=== PATIENT | male | born 1935 | race Caucasian/White ===

== ENCOUNTER 2016-09-11 15:08 | Inpatient (IN) | payer OTHER ==
[~2016-09-11] VITALS: Ht 172.7 cm; Wt 89.6 kg
[~2016-09-11 15:08] MED LIST: CIPR1TAB11 PO; DONE10TA12 PO; GLC500 PO; GLYB5TAB8 PO; LEVO25TA5 PO; LISI40TA PO; TRAM-10 PO; WARF5TAB7 PO
[2016-09-11] MEDS ORDERED: ONDANSETRON INJ 2 MG/ML 2 ML VIAL IV STA (15:39)
[2016-09-11] MEDS ORDERED: SODIUM CHLORIDE 0.9% 1000ML 2,000 ML IV STA (15:39)
[2016-09-11] MEDS ORDERED: CEFEPIME IV 1,000 MG in DEXTROSE 5% 100ML 100 ML IV STA (15:48)
[2016-09-11 15:49] LABS: BASO % 0.2 %; BASO ABS # 0.03 K/uL (0-0.2); COMPLETE YES; EOS % 0.3 %; HEMATOCRIT 35.5 % (42-52); IG% 0.5 %; LYMPH % 11.1 %; LYMPH ABS # 2.17 K/uL (1.2-3.4); MEAN CELL VOLUME 90.1 fL (80-100); MEAN CORPUSCULAR HGB CONC 34.4 g/dl (32-36); MONO % 12.8 %; NEUT % 75.1 %; PLATELET COUNT 307 K/uL (130-400); RED BLOOD COUNT 3.94 M/uL (4.7-6.1); WHITE BLOOD COUNT 19.52 K/uL (4.8-10.8)
[2016-09-11 15:56] LABS: INR 1.2 (0.9-1.1); PROTHROMBIN TIME (PATIENT) 13.3 SECONDS (9.0-12.0)
[2016-09-11 15:58] LABS: ISTAT HEMOGLOBIN 13.3 g/dl (14.0-18.0); ISTAT IONIZED CALCIUM 1.11 mmol/l (1.12-1.32)
[2016-09-11 16:17] LABS: BUN/CREATININE RATIO 9.9 (10-20); CALCIUM 8.9 mg/dl (8.5-10.1); CREATININE 3.5 mg/dl (0.60-1.40); MAGNESIUM 1.7 mg/dl (1.8-2.4); POTASSIUM 4.6 mmol/L (3.5-5.1)
[2016-09-11 16:22] LABS: CKMB/CK RATIO 1.4 (0-3.0)
--- NOTE | 2016-09-11 16:25 | DIAGNOSTIC IMAGING REPORT ---
LEFT ANKLE MIN 3 VIEWS ROUTINE CLINICAL HISTORY: L ankle pain pain COMPARISON: None. DISCUSSION: Moderate degenerative changes throughout. Operative changes consistent with a partial ankle fusion. Small heel spur mild soft tissue edema. Ankle mortise is aligned anatomically. IMPRESSION: Moderate degenerative as well as postoperative change as described. No acute bony abnormality. Electronically signed by: Trae Herrera M.D. 09/11/2016 4:24 PM Dictated Date/Time: 09/11/2016 4:23 PM
[2016-09-11] MEDS ORDERED: MULT-506 PO (16:41)
[2016-09-11] MEDS ORDERED: SODIUM CHLORIDE 0.9% 500ML 500 ML IV STA ×2 (18:02→19:24)
[2016-09-11 18:32] LABS: MANUAL MICROSCOPIC REQUIRED? YES; URINE APPEARANCE TURBID (CLEAR); URINE COLOR YELLOW; URINE NITRITE NEG (NEG); URINE PH 5.5 (4.5-7.5); URINE SPECIFIC GRAVITY >= 1.030 (1.000-1.030); UROBILINOGEN NEG (NEG)
[2016-09-11 18:36] LABS: REVIEW REQ? NO
[2016-09-11 18:53] LABS: URINE BILIRUBIN NEG (NEG)
[2016-09-11 19:10] LABS: URINE WBC >30 /hpf (0-5)
[2016-09-11 19:11] LABS: URINE BACTERIA 3+ (NEG)
[2016-09-11 19:14] LABS: URINE WAXY CAST 0-3 /lpf (0)
[2016-09-11 19:17] LABS: ZZURINE CULT IF INDIC CATH YES
[2016-09-11] MEDS ORDERED: ZOLPIDEM TARTRATE 5 MG TAB PO PRN (19:45)
[2016-09-11] MEDS ORDERED: MoRPHine SULFATE 4 MG/ML 1 ML CARP\\VIAL IV PRN (19:45)
[2016-09-11] MEDS ORDERED: GLUCAGON FOR INJ 1 MG VIAL SQ PRN (19:45)
[2016-09-11] MEDS ORDERED: DEXTROSE 50% 50 ML SYR IV PRN (19:45)
[2016-09-11] MEDS ORDERED: GLUCOSE 10 TABS/TUBE PO PRN (19:45)
[2016-09-11] MEDS ORDERED: GLUCOSE 40% GEL 15 GM TUBE PO PRN (19:45)
[2016-09-11] MEDS ORDERED: MoRPHine SULFATE 2 MG/ML CARP IV PRN (19:45)
[2016-09-11] MEDS ORDERED: ACETAMINOPHEN 325 MG TAB PO PRN (19:45)
[2016-09-11] MEDS ORDERED: ONDANSETRON INJ 2 MG/ML 2 ML VIAL IV PRN (19:45)
[2016-09-11 21:00] VITALS: BP 122/59; PULSE 102; TEMP 37.2; O2SAT 95; Ht 172.7 cm; Wt 89.6 kg
[2016-09-11] MEDS: INSULIN ASPART 100 UNITS/ML 3 ML PEN SC SCH (21:00)
[2016-09-11] MEDS ORDERED: PIPERACILL/TAZOBAC IV 3.375 GM in DEXTROSE 5% 100ML 100 ML IV STA (21:24)
[2016-09-11] MEDS ORDERED: PIPERACILL/TAZOBAC CONSULT ACTIVE PRN (21:30)
[2016-09-11] MEDS ORDERED: DAPTOMYCIN CONSULT ACTIVE PRN ×2 (21:30)
[2016-09-11] MEDS ORDERED: DAPTOmycin IV 525 MG in SODIUM CHLORIDE 0.9% 50ML 50 ML IV SCH (22:00)
--- NOTE | 2016-09-11 22:00 | EMERGENCY ROOM VISIT NOTE ---
History Report prepared by Bella: Nguyen Peters Under the Supervision of: Dr. Mario Mahmood D.O. First contact with patient: 15:30 Chief Complaint: HYPOTENSION Stated Complaint: FOOT IS BLACK/RED NOT SORE History of Present Illness The patient is a 80 year old male who presents to the Emergency Room with complaints of persistent left foot swelling and erythema that began two days ago. He currently rates his discomfort as a 5/10 in severity. Per the patient' s children, the patient has a history of urosepsis one month ago and was evaluated at [facility]. The patient states that he had a Agarwal catheter placed on 09/04. He states that he became dizzy and fell on Friday. The patient associates diaphoresis, nausea and vomiting with his symptoms today. He states that he vomited three times this morning. The patient states that his last bowel movement was yesterday, noting that it was normal. He denies any history of abdominal surgeries. Pt denies headache, change in vision , fevers, cough, runny nose, chest pain, shortness of breath, diarrhea, and melena. Source of History: patient, family Onset: two days ago Position: foot (left) Symptom Intensity: 5/10 Quality: other (swelling and erythema) Timing: other (persistent) Associated Symptoms: + diaphoresis, + nausea, + vomiting Review of Systems See HPI for pertinent positives & negatives. A total of 10 systems reviewed and were otherwise negative. Past Medical & Surgical Medical Problems: (1) Atrial fibrillation (2) Benign essential hypertension (3) Diabetes mellitus, type 2 (4) Hyperlipidemia (5) Hypotension (6) Pacemaker (7) SIRS (systemic inflammatory response syndrome) Family History FH: cancer FH: lung disease Social History Smoking Status: Never Smoker Smokeless Tobacco Use: No Alcohol Use: none Drug Use: none Marital Status: Occupation Status: retired Current/Historical Medications Scheduled Ciprofloxacin Tab (Cipro), 500 MG PO BID Donepezil Hydrochloride (Aricept), 10 MG PO HS Glyburide (Micronase), 2.5 MG PO QAM Levothyroxine Sodium (Levothyroxine Sodium), 25 MCG PO QAM Lisinopril (Prinivil), 40 MG PO QPM Metformin HCl (Metformin HCl), 1,000 MG PO BID Multivitamin (Multivitamin), 1 TAB PO DAILY Warfarin Sod (Jantoven), 5 MG PO HOLD Scheduled PRN Tramadol (Ultram), 50-100 MG PO Q6H PRN for Pain Allergies Coded Allergies: No Known Allergies (Unverified , 09/11/16) Physical Exam Vital Signs Date Time Temp Pulse Resp B/P Pulse Ox O2 Delivery O2 Flow Rate FiO2 09/11/16 18:20 92 18 100/53 92 Room Air 09/11/16 17:18 94 18 116/57 93 Room Air 09/11/16 16:48 95 18 95/48 97 Room Air 09/11/16 16:23 115/50 09/11/16 16:22 82 16 91/60 92 Room Air 09/11/16 15:57 95 18 86/44 92 Room Air 09/11/16 15:43 91 20 116/50 95 Room Air 09/11/16 15:37 98 09/11/16 15:20 36.5 102 22 75/49 94 Room Air Physical Exam GENERAL: Sitting up in bed, pale, in moderate distress, alert, well appearing, well nourished, non-toxic EYE EXAM: normal conjunctiva. OROPHARYNX: no exudate, no erythema, lips, buccal mucosa, and tongue normal and mucous membranes are moist NECK: supple, no nuchal rigidity, no adenopathy, non-tender CHEST: Pacer located in left chest wall. LUNGS: Clear to auscultation. Normal chest wall mechanics HEART: no murmurs, S1 normal and S2 normal ABDOMEN: abdomen soft, non-tender, normo-active bowel sounds, no masses, no rebound or guarding. BACK: Back is symmetrical on inspection and there is no deformity, no midline tenderness, no CVA tenderness. SKIN: no rashes and no bruising UPPER EXTREMITIES: upper extremities are grossly normal. LOWER EXTREMITIES: Left ankle with erythema and acute tenderness on palpation NEURO EXAM: Normal sensorium, cranial nerves II-XII grossly intact, normal speech, no gross weakness of arms, no gross weakness of legs. No drift. Finger to nose intact. Gross sensation intact. Medical Decision & Procedures ER Provider Diagnostic Interpretation: Xray results per the radiologist and my interpretation. Other results have been interpreted by the radiologist and reviewed by me. LEFT ANKLE MIN 3 VIEWS ROUTINE CLINICAL HISTORY: L ankle pain pain COMPARISON: None. DISCUSSION: Moderate degenerative changes throughout. Operative changes consistent with a partial ankle fusion. Small heel spur mild soft tissue edema. Ankle mortise is aligned anatomically. IMPRESSION: Moderate degenerative as well as postoperative change as described. No acute bony abnormality. Electronically signed by: Trae Herrera M.D. 09/11/2016 4:24 PM Dictated Date/Time: 09/11/2016 4:23 PM Laboratory Results 09/11/16 15:35 Red Blood Count 3.94, Mean Corpuscular Volume 90.1, Mean Corpuscular Hemoglobin 31.0, Mean Corpuscular Hemoglobin Concent 34.4, Mean Platelet Volume 9.0, Neutrophils (%) (Auto) 75.1, Lymphocytes (%) (Auto) 11.1, Monocytes (%) (Auto) 12.8, Eosinophils (%) (Auto) 0.3, Basophils (%) (Auto) 0.2, Neutrophils # (Auto ) 14.68, Lymphocytes # (Auto) 2.17, Monocytes # (Auto) 2.49, Eosinophils # (Auto ) 0.06, Basophils # (Auto) 0.03 09/11/16 15:35 Test 09/11/16 15:35 09/11/16 15:40 09/11/16 15:46 09/11/16 18:15 White Blood Count 19.52 K/uL (4.8-10.8) Red Blood Count 3.94 M/uL (4.7-6.1) Hemoglobin 12.2 g/dL (14.0-18.0) Hematocrit 35.5 % (42-52) Mean Corpuscular Volume 90.1 fL (80-100) Mean Corpuscular Hemoglobin 31.0 pg (25-34) Mean Corpuscular Hemoglobin Concent 34.4 g/dl (32-36) Platelet Count 307 K/uL (130-400) Mean Platelet Volume 9.0 fL (7.4-10.4) Neutrophils (%) (Auto) 75.1 % Lymphocytes (%) (Auto) 11.1 % Monocytes (%) (Auto) 12.8 % Eosinophils (%) (Auto) 0.3 % Basophils (%) (Auto) 0.2 % Neutrophils # (Auto) 14.68 K/uL (1.4-6.5) Lymphocytes # (Auto) 2.17 K/uL (1.2-3.4) Monocytes # (Auto) 2.49 K/uL (0.11-0.59) Eosinophils # (Auto) 0.06 K/uL (0-0.5) Basophils # (Auto) 0.03 K/uL (0-0.2) RDW Standard Deviation 48.7 fL (36.4-46.3) RDW Coefficient of Variation 14.7 % (11.5-14.5) Immature Granulocyte % (Auto) 0.5 % Immature Granulocyte # (Auto) 0.09 K/uL (0.00-0.02) Prothrombin Time 13.3 SECONDS (9.0-12.0) Prothromb Time International Ratio 1.2 (0.9-1.1) Est Creatinine Clear Calc Drug Dose 18.6 ml/min Estimated GFR () 18.3 Estimated GFR (Non- 15.8 BUN/Creatinine Ratio 9.9 (10-20) Uric Acid 5.1 mg/dl (2.6-7.2) Calcium Level 8.9 mg/dl (8.5-10.1) Magnesium Level 1.7 mg/dl (1.8-2.4) Total Bilirubin 0.6 mg/dl (0.2-1) Direct Bilirubin 0.1 mg/dl (0-0.2) Aspartate Amino Transf (AST/SGOT) 15 U/L (15-37) Alanine Aminotransferase (ALT/SGPT) 23 U/L (12-78) Alkaline Phosphatase 85 U/L (45-117) Total Creatine Kinase 71 U/L (39-308) Creatine Kinase MB 1.0 ng/ml (0.5-3.6) Creatine Kinase MB Ratio 1.4 (0-3.0) Troponin I 0.035 ng/ml (0-0.045) Total Protein 9.0 gm/dl (6.4-8.2) Albumin 3.2 gm/dl (3.4-5.0) Bedside Lactic Acid Venous 3.94 mmol/L (0.90-1.70) Bedside Hemoglobin 13.3 g/dl (14.0-18.0) Bedside Hematocrit 39 % (42-52) Bedside Sodium 136 mEq/L (135-144) Bedside Potassium 4.6 mEq/L (3.3-5.0) Bedside Chloride 100 mEq/L (101-112) Bedside Total CO2 22 mEq/l (24-31) Anion Gap 20.0 mmol/L (16-25) Bedside Blood Urea Nitrogen 33 mg/dl (7-18) Bedside Creatinine 3.0 mg/dl (0.6-1.3) Bedside Glucose (other) 146 mg/dl (70-99) Bedside Ionized Calcium (Kirstin) 1.11 mmol/l (1.12-1.32) Urine Color YELLOW Urine Appearance TURBID (CLEAR) Urine pH 5.5 (4.5-7.5) Urine Specific [place] >= 1.030 (1.000-1.030) Urine Protein 3+ (NEG) Urine Glucose (UA) TRACE (NEG) Urine Ketones TRACE (NEG) Urine Occult Blood 3+ (NEG) Urine Nitrite NEG (NEG) Urine Bilirubin NEG (NEG) Urine Urobilinogen NEG (NEG) Urine Leukocyte Esterase MODERATE (NEG) Urine RBC 10-30 /hpf (0-4) Urine WBC >30 /hpf (0-5) Urine Epithelial Cells 0-5 /lpf (0-5) Urine Other Crystals TALC (NONE PRSENT) Urine Bacteria 3+ (NEG) Urine Hyaline Casts 5-10 /lpf (0-5) Urine Granular Casts 1-5 /lpf (0) Urine Waxy Casts 0-3 /lpf (0) Test 09/11/16 19:22 Laboratory results per my review. Medications Administered Medications (Trade) Dose Ordered Sig/Bertha Route Start Time Stop Time Status Last Admin Dose Admin Sodium Chloride (Nss 1000ml) 2,000 ml @ 999 mls/hr Q2H1M STAT IV 09/11/16 15:39 09/11/16 17:39 DC 09/11/16 15:46 999 MLS/HR Ondansetron HCl 4 mg 4 mg NOW STAT IV 09/11/16 15:39 09/11/16 15:40 DC 09/11/16 15:44 4 MG Cefepime HCl 1000 mg/Dextrose 111.3 ml @ 200 mls/hr NOW STAT IV 09/11/16 15:48 09/11/16 16:21 DC 09/11/16 16:21 200 MLS/HR Sodium Chloride 500 ml @ 999 mls/hr Q31M STAT IV 09/11/16 18:02 09/11/16 18:32 DC 09/11/16 18:02 999 MLS/HR Sodium Chloride (Nss 500ml) 500 ml @ 999 mls/hr Q31M STAT IV 09/11/16 19:24 09/11/16 19:54 DC 09/11/16 19:30 999 MLS/HR ECG Indication: other (sepsis) Rate (beats per minute): 92 Rhythm: other (ventricularly paced) Findings: LBBB, other (normal axis) ED Course ED COURSE: Vital signs were reviewed and showed hypotensive, tachycardic The patients medical record was reviewed The above diagnostic studies were performed and reviewed. ED treatments and interventions as stated above. 1531: The patient was evaluated in room C2B. A complete history and physical examination was performed. 1539: Ordered Zofran Inj 4 mg IV, Sodium Chloride 2000 ml @ 999 mls/hr IV. 1548: Ordered Cefepime HCl 1000 mg/Dextrose 111.3 ml @ 200 mls/hr IV. 1624: Upon reevaluation, the patient is his pressure is 115. I discussed my findings with the patient and he understands and agrees with the treatment plan. Based on the patients age, coexisting illnesses, exam and lab findings the decision to treat as an inpatient was made. The patient remained stable while under my care. The patient will be evaluated for further management. 1716: I discussed the patients case with MARIBETH Galindo. She is going to evaluate the patient for further treatment. Medical Decision Differential diagnosis includes etiologies such as sepsis, UTI, pneumonia, metabolic, electrolyte abnormalities, cardiac sources, intracerebral event, toxicologic, neurologic, as well as others were entertained. Patient is a 80-year-old male who presents the ER for hypertension and weakness. Upon presentation his systolic pressures were 70. He has an indwelling Agarwal for BPH. Labs were remarkable for a leukocytosis of 20,000. Creatinine of 3.5 with no old and a lactic acid of 4. Patient was given three liters of normal saline IV. His systolic pressures gradually improved from the 70s to 80s to 90s and low 100s. UA appears to be infected. Chest x-ray performed as an outpatient was unremarkable. Patient was monitored closely in the ER for over 4 hours. He was given IV antibiotics which included cefepime for broad spectrum coverage. He was admitted to internal medicine with sepsis secondary to UTI and gout versus a strain ankle versus overlying cellulitis. I do favor that left ankle is likely related to trauma as the daughter notes he admitted to following 2 days ago when the ankle pain started. X-ray show no acute fractures. Consults Time Called: 1700 Consulting Physician: MARIBETH Galindo Returned Call: 1716 I discussed the patients case with MARIBETH Galindo. She is going to evaluate the patient for further treatment. Impression Primary Impression: Sepsis Additional Impressions: Hypotension Leukocytosis Critical Care I have personally spent 75 minutes of critical care time in the direct management of this patient. This includes bedside care, interpretation of diagnostic studies, and testing, discussion with consultants, patient, and family members, and other required patient management activities. This 75 minutes is in excess of all separately billable procedures. Scribe Attestation The scribe's documentation has been prepared under my direction and personally reviewed by me in its entirety. I confirm that the note above accurately reflects all work, treatment, procedures, and medical decision making performed by me. Departure Information Dispostion Being Evaluated By Hospitalist Referrals No Doctor, Assigned (PCP) Problem Qualifiers Primary Impression: Sepsis Sepsis type: sepsis due to unspecified organism Qualified Codes: A41.9 - Sepsis, unspecified organism Additional Impressions: Hypotension Hypotension type: other hypotension type Qualified Codes: I95.89 - Other hypotension Leukocytosis Leukocytosis type: bandemia Qualified Codes: D72.825 - Bandemia
[2016-09-11] MEDS: COLCHICINE 0.6 MG TAB PO SCH (22:21)
[2016-09-11] MEDS: SODIUM CHLORIDE 0.9% 1000ML 1,000 ML IV SCH (22:22)
--- NOTE | 2016-09-11 22:25 | History and Physical ---
History & Physical Date & Time of Service: Sep 11, 2016 at 22:25 Chief Complaint: Hypotension, Sirs Primary Care Physician: Christoph Barger M.D. History of Present Illness Source: patient, family The patient is a 80-year-old male who presents emergency department with severe left foot pain, redness and swelling, and sweats with nausea and vomiting that began 2 days prior to arrival. He was recently admitted at [facility] for urosepsis 1 month ago. He'll Agarwal catheter placed on September 04. He reports he vomited 3 times this morning. His foot hurts the point that he can' t stand on it. He does have a history of spider bites, having had a bite on his right shoulder last year by treatment, and a nurse noted in the ED tonight that he has spider on him at that time. He denies any recent trauma, recent travel or sick exposures Past Medical/Surgical History Medical Problems: (1) Atrial fibrillation Status: Chronic (2) Benign essential hypertension Status: Chronic (3) Diabetes mellitus, type 2 Status: Chronic (4) Hyperlipidemia Status: Chronic (5) Pacemaker Status: Chronic Family History FH: cancer FH: lung disease Social History Smoking Status: Never Smoker Smokeless Tobacco Use: No Alcohol Use: none Drug Use: none Marital Status: Occupational Status: retired Allergies Coded Allergies: No Known Allergies (Unverified , 09/11/16) Home Medications Scheduled Ciprofloxacin Tab (Cipro), 500 MG PO BID Donepezil Hydrochloride (Aricept), 10 MG PO HS Glyburide (Micronase), 2.5 MG PO QAM Levothyroxine Sodium (Levothyroxine Sodium), 25 MCG PO QAM Lisinopril (Prinivil), 40 MG PO QPM Metformin HCl (Metformin HCl), 1,000 MG PO BID Multivitamin (Multivitamin), 1 TAB PO DAILY Warfarin Sod (Jantoven), 5 MG PO HOLD Scheduled PRN Tramadol (Ultram), 50-100 MG PO Q6H PRN for Pain Review of Systems The patient denies chest pain, palpitations, shortness of breath, cough, vision change, hearing change, sore throat, fevers, chills, sweats, weight change, pelvic pain, blood in urine or stool, dysuria, urinary frequency or urgency, headache, memory loss, abnormal bruising or bleeding, imbalance, focal weakness, numbness or tingling in arms, night sweats, or allergy symptoms. The review of systems is otherwise negative other than for that already noted above, and at least 10 systems have been reviewed. Physical Exam Vital Signs Date Time Temp Pulse Resp B/P Pulse Ox O2 Delivery O2 Flow Rate FiO2 09/11/16 21:00 37.2 102 22 122/59 95 Room Air 09/11/16 18:20 92 18 100/53 92 Room Air 09/11/16 17:18 94 18 116/57 93 Room Air 09/11/16 16:48 95 18 95/48 97 Room Air 09/11/16 16:23 115/50 09/11/16 16:22 82 16 91/60 92 Room Air 09/11/16 15:57 95 18 86/44 92 Room Air 09/11/16 15:43 91 20 116/50 95 Room Air 09/11/16 15:37 98 09/11/16 15:20 36.5 102 22 75/49 94 Room Air The patient is awake, well-developed and adequately nourished, alert and oriented 3, normocephalic and atraumatic, lying in bed and in no acute distress. HEENT--PERRL, EOMI, mucous membranes and oropharynx dry. Neck--supple, no JVD or bruits, thyroid normal, trachea midline, no adenopathy. Heart--normal S1 and S2, no extra beats, no murmurs, rubs or gallops. Lungs--clear bilaterally with good air movement, no respiratory distress, no accessory muscle use. Abdomen--normal bowel sounds and soft, nontender and nondistended, no hernias or masses, no organomegaly. Extremities--left lower extremity no cyanosis, clubbing or edema, with good distal pulse. Right lower extremity with 2+ pitting edema pedally and 1+ pretibial, with erythema and warmth most prominent over her lateral malleolus extending across the dorsum of with the base the ankle and to a lesser extent involving medial malleolus area. There are no suggestions of bites in this area. Dermatologic--normal except as noted above. Neurologic--cranial nerves II through XII grossly intact, motor and sensory examination normal. Rheumatologic--decreased range of motion with pain to light touch involving right ankle. Psychiatric--normal affect. Diagnostics Laboratory Results Results Past 24 Hours Test 09/11/16 15:35 09/11/16 15:40 09/11/16 15:46 09/11/16 18:15 Range/Units White Blood Count 19.52 4.8-10.8 K/uL Red Blood Count 3.94 4.7-6.1 M/uL Hemoglobin 12.2 14.0-18.0 g/dL Hematocrit 35.5 42-52 % Mean Corpuscular Volume 90.1 80-100 fL Mean Corpuscular Hemoglobin 31.0 25-34 pg Mean Corpuscular Hemoglobin Concent 34.4 32-36 g/dl Platelet Count 307 130-400 K/uL Mean Platelet Volume 9.0 7.4-10.4 fL Neutrophils (%) (Auto) 75.1 % Lymphocytes (%) (Auto) 11.1 % Monocytes (%) (Auto) 12.8 % Eosinophils (%) (Auto) 0.3 % Basophils (%) (Auto) 0.2 % Neutrophils # (Auto) 14.68 1.4-6.5 K/uL Lymphocytes # (Auto) 2.17 1.2-3.4 K/uL Monocytes # (Auto) 2.49 0.11-0.59 K/uL Eosinophils # (Auto) 0.06 0-0.5 K/uL Basophils # (Auto) 0.03 0-0.2 K/uL RDW Standard Deviation 48.7 36.4-46.3 fL RDW Coefficient of Variation 14.7 11.5-14.5 % Immature Granulocyte % (Auto) 0.5 % Immature Granulocyte # (Auto) 0.09 0.00-0.02 K/uL Prothrombin Time 13.3 9.0-12.0 SECONDS Prothromb Time International Ratio 1.2 0.9-1.1 Sodium Level 135 136-145 mmol/L Potassium Level 4.6 3.5-5.1 mmol/L Chloride Level 101 98-107 mmol/L Carbon Dioxide Level 25 21-32 mmol/L Anion Gap 9.0 20.0 16-25 mmol/L Blood Urea Nitrogen 35 7-18 mg/dl Creatinine 3.50 0.60-1.40 mg/dl Est Creatinine Clear Calc Drug Dose 18.6 ml/min Estimated GFR () 18.3 Estimated GFR (Non- 15.8 BUN/Creatinine Ratio 9.9 10-20 Random Glucose 139 70-99 mg/dl Uric Acid 5.1 2.6-7.2 mg/dl Calcium Level 8.9 8.5-10.1 mg/dl Magnesium Level 1.7 1.8-2.4 mg/dl Total Bilirubin 0.6 0.2-1 mg/dl Direct Bilirubin 0.1 0-0.2 mg/dl Aspartate Amino Transf (AST/SGOT) 15 15-37 U/L Alanine Aminotransferase (ALT/SGPT) 23 12-78 U/L Alkaline Phosphatase 85 45-117 U/L Total Creatine Kinase 71 39-308 U/L Creatine Kinase MB 1.0 0.5-3.6 ng/ml Creatine Kinase MB Ratio 1.4 0-3.0 Troponin I 0.035 0-0.045 ng/ml Total Protein 9.0 6.4-8.2 gm/dl Albumin 3.2 3.4-5.0 gm/dl Bedside Lactic Acid Venous 3.94 0.90-1.70 mmol/L Bedside Hemoglobin 13.3 14.0-18.0 g/dl Bedside Hematocrit 39 42-52 % Bedside Sodium 136 135-144 mEq/L Bedside Potassium 4.6 3.3-5.0 mEq/L Bedside Chloride 100 101-112 mEq/L Bedside Total CO2 22 24-31 mEq/l Bedside Blood Urea Nitrogen 33 7-18 mg/dl Bedside Creatinine 3.0 0.6-1.3 mg/dl Bedside Glucose (other) 146 70-99 mg/dl Bedside Ionized Calcium (Kirstin) 1.11 1.12-1.32 mmol/l Urine Color YELLOW Urine Appearance TURBID CLEAR Urine pH 5.5 4.5-7.5 Urine Specific [place] >= 1.030 1.000-1.030 Urine Protein 3+ NEG Urine Glucose (UA) TRACE NEG Urine Ketones TRACE NEG Urine Occult Blood 3+ NEG Urine Nitrite NEG NEG Urine Bilirubin NEG NEG Urine Urobilinogen NEG NEG Urine Leukocyte Esterase MODERATE NEG Urine RBC 10-30 0-4 /hpf Urine WBC >30 0-5 /hpf Urine Epithelial Cells 0-5 0-5 /lpf Urine Other Crystals TALC NONE PRSENT Urine Bacteria 3+ NEG Urine Hyaline Casts 5-10 0-5 /lpf Urine Granular Casts 1-5 0 /lpf Urine Waxy Casts 0-3 0 /lpf Test 09/11/16 19:22 Range/Units Lactic Acid Level 2.5 0.4-2.0 mmol/L Microbiology Results 09/11/16 Blood Culture, Received Pending 09/11/16 Blood Culture, Received Pending 09/11/16 Urine Culture, Received Pending Diagnostic Radiology Patient Name: MIKE GONG Ag Unit Number: [id number] Dictated: 09/11/161622 Transcribed: 09/11/161622 MS Printed Date/Time: [~ rep prt dt]/[~ rep prt tm] [~ rep ct labl] - [~ rep ct ivnm] [facility] [place] [address] Dictated: 09/11/161622 Transcribed: 09/11/161622 MS Printed Date/Time: [~ rep prt dt]/[~ rep prt tm] [~ rep ct labl] - [~ rep ct ivnm] DIAGNOSTIC IMAGING [~ rep ct add3]] LEFT ANKLE MIN 3 VIEWS ROUTINE CLINICAL HISTORY: L ankle pain pain COMPARISON: None. DISCUSSION: Moderate degenerative changes throughout. Operative changes consistent with a partial ankle fusion. Small heel spur mild soft tissue edema. Ankle mortise is aligned anatomically. IMPRESSION: Moderate degenerative as well as postoperative change as described. No acute bony abnormality. Electronically signed by: Trae Herrera M.D. 09/11/2016 4:24 PM Dictated Date/Time: 09/11/2016 4:23 PM The status of this report is Signed. Draft = Not yet reviewed or approved by Radiologist. Signed = Reviewed and approved by Radiologist. <AttendingPhy></AttendingPhy> <FamilyPhy>Christoph Barger M.D.</FamilyPhy> < PrimaryPhy>Christoph Barger M.D.</PrimaryPhy> <UnitNumber>[id number]</UnitNumber> <VisitNumber>[id number]</VisitNumber> <PatientName>MIKE GONG</ PatientName> <DateOfBirth>1935</DateOfBirth> <Location>[facility]</Location> < ServiceDate>09/11/16</ServiceDate> <MNE>ESINDI</MNE> <OrderingPhy>Mario Mahmood DO</OrderingPhy> <OrderingPhyMNE>f rep ord dr baldwin</OrderingPhyMNE> < DictatingPhyMNE>f rep dict dr baldwin</DictatingPhyMNE> <CCListMNE>f rep ct helene</ CCListMNE> <AdmittingPhyMNE>f pt admit dr baldwin</AdmittingPhyMNE> <AttendingPhyMNE >f pt attend dr baldwin</AttendingPhyMNE> <ConsultingPhyMNE>f pt consult dr baldwin</ConsultingPhyMNE> <FamilyPhyMNE>f pt fam dr baldwin</FamilyPhyMNE> <OtherPhyMNE>f pt other dr baldwin</OtherPhyMNE> < PrimaryPhyMNE>f pt prim care dr baldwin</PrimaryPhyMNE> <ReferringPhyMNE>f pt referring dr baldwin</ReferringPhyMNE> EKG EKG shows atrial sensed ventricular paced rhythm at 92 bpm, with no acute ST-T changes. Impression Assessment and Plan Right lower extremity cellulitis/possible gout/UTI/SIRS--the patient will be placed on daptomycin IV, Zosyn 3.375 mg IV every 12 hours, and colchicine 0.6 mg by mouth twice a day. We'll add a uric acid level to ED labs. At this time there does not appear to be a spider bite. Atrial fibrillation/hypotension--patient's blood pressure upon arrival in the ED was 75/49. He has responded to IV fluid resuscitation. He will be admitted to the telemetry unit for close vital sign monitoring. We'll continue IV fluids. We will hold lisinopril 40 mg by mouth every afternoon. The patient had been on warfarin 5 mg by mouth daily, but is presently on hold. Diabetes mellitus--hold metformin 1000 mg by mouth twice a day. Of note, his creatinine was 3.50 point admission, and the metformin should not be resumed until INR is less than or equal to 1.4. We'll continue glyburide 2.5 mg by mouth every morning. Place on Accu-Cheks before meals and at bedtime with NovoLog coverage. Hypothyroidism--continue levothyroxine sodium at 25 g by mouth every morning. Dementia--continue donepezil 10 mg by mouth at bedtime. Pain management--continue tramadol at 50 mg by mouth every 4 hours when necessary. Level of Care Telemetry Advanced Directives Existing Advance Directive: No Existing Living Will: No Existing Power of Communication Center Operator: No Resuscitation Status FULL RESUSCITATION VTE Prophylaxis VTE Risk Assessment Done? Y/N: Yes Risk Level: Moderate Given or contraindicated: SCD's Social Service Consult None Apply
[2016-09-11] MEDS: TRAMADOL HCL 50 MG TAB PO PRN (23:53)
[2016-09-12] VITALS (9 sets, daily range): BP systolic 96–123; BP diastolic 43–69; PULSE 74–88; TEMP 36.6–37.5; O2SAT 94–98
[2016-09-12] MEDS ORDERED: PIPERACILL/TAZOBAC IV 3.375 GM in DEXTROSE 5% 100ML 100 ML IV SCH (04:00)
[2016-09-12] MEDS: SODIUM CHLORIDE 0.9% 1000ML 1,000 ML IV SCH ×2 (05:30→17:12)
[2016-09-12] MEDS: LEVOTHYROXINE 25 MCG TAB PO SCH (05:44)
[2016-09-12 07:12] LABS: INR 1.3 (0.9-1.1); PARTIAL THROMBOPLASTIN RATIO 1.3; PROTHROMBIN TIME (PATIENT) 13.7 SECONDS (9.0-12.0)
[2016-09-12 07:27] LABS: BUN/CREATININE RATIO 15.4 (10-20); CALCIUM 7.8 mg/dl (8.5-10.1); CREATININE 2.5 mg/dl (0.60-1.40); MAGNESIUM 1.7 mg/dl (1.8-2.4); POTASSIUM 4.1 mmol/L (3.5-5.1)
[2016-09-12] MEDS: INSULIN ASPART 100 UNITS/ML 3 ML PEN SC SCH ×4 (07:51→21:00)
[2016-09-12] MEDS: MULTIVITAMIN TAB PO SCH (07:53)
[2016-09-12] MEDS: COLCHICINE 0.6 MG TAB PO SCH ×2 (07:53→21:31)
--- NOTE | 2016-09-12 08:09 | Clinical Documentation Query ---
ADEN Bahena : CLINICAL DOCUMENTATION QUERY Patient is a 80 year old male admitted for the evaluation and treatment of right lower extremity cellulitis. H&P documentation includes "SIRS". Unfortunately, in ICD-10, SIRS due to infection does not equate with sepsis as it did in ICD-9. He was bolused 3 liters in the ED. On admission, WBC was 19.52, lactic acid was 3.94, he was tachycardic (102) and hypotensive (75/49). He is being treated with IV Daptomycin and IV Zosyn in addition to IVF and is being monitored on telemetry In your clinical opinion is this patient being managed for: ( ) Sepsis secondary to right lower extremity cellulitis and/or UTI (x ) Other explanation of clinical findings (Please Explain) - did not have sepsis; was volume depleted (severely) due to a passed kidney stone; it was uncertain if he ever had any urinary infection with this episode ( ) Unable to determine (Please Define) ( ) Need to Discuss ( ) Not Agree The medical record reflects the following clinical findings, treatment, and risk factors. Clinical Indicators: As above Treatment: He is being treated with IV Daptomycin and IV Zosyn in addition to IVF. and is being monitored on telemetry Risk Factors: Cellulitis, possible UTI Please clarify and document your clinical opinion in the progress notes and discharge summary. Terms such as "probable", "suspected", "likely", "questionable", "possible", or "still to be ruled out" are acceptable. IF IN AGREEMENT, YOU MUST DOCUMENT ABOVE DIAGNOSTIC STATEMENT IN DAILY PROGRESS NOTES AND DISCHARGE SUMMARY. This document is not part of the patient's record. Thank You, Kee South, RN [phone]
[2016-09-12 13:23] LABS: BASO % 0.2 %; BASO ABS # 0.02 K/uL (0-0.2); COMPLETE YES; EOS % 1.9 %; HEMATOCRIT 27.9 % (42-52); IG% 0.3 %; LYMPH % 16.2 %; LYMPH ABS # 2.03 K/uL (1.2-3.4); MEAN CELL VOLUME 90.9 fL (80-100); MEAN CORPUSCULAR HEMOGLOBIN 29.6 pg (25-34); MEAN CORPUSCULAR HGB CONC 32.6 g/dl (32-36); MEAN PLATELET VOLUME 9.1 fL (7.4-10.4); MONO % 14.2 %; NEUT % 67.2 %; PLATELET COUNT 223 K/uL (130-400); RED BLOOD COUNT 3.07 M/uL (4.7-6.1); WHITE BLOOD COUNT 12.53 K/uL (4.8-10.8)
[2016-09-12] MEDS: PIPERACILL/TAZOBAC IV 3.375 GM in DEXTROSE 5% 100ML 100 ML IV SCH ×2 (13:48→20:03)
[2016-09-12] MEDS: MAGNESIUM OXIDE 400 MG TAB PO SCH (13:49)
--- NOTE | 2016-09-12 13:59 | DIAGNOSTIC IMAGING REPORT ---
CT SCAN OF THE ABDOMEN AND PELVIS WITHOUT IV CONTRAST CLINICAL HISTORY: Left-sided abdominal pain. Sepsis. COMPARISON STUDY: Abdominal CT dated 08/09/2016. TECHNIQUE: CT scan of the abdomen and pelvis is performed from the lung bases to the proximal femora. Images are reviewed in the axial, sagittal, and coronal planes. IV contrast was not administered for this examination as per the referring clinician. Note that the examination was performed in significantly suboptimal fashion without oral and IV contrast.. Automated dose control exposure was utilized. CT DOSE: 1571.90 mGy.cm FINDINGS: Lung bases: The heart is top normal in size and there is a small pericardial effusion. Pacemaker leads are identified. The coronary arteries are densely calcified. There are small pleural effusions with dependent atelectasis. No airspace consolidation is seen typical for pneumonia. There is a small hiatal hernia. Liver: The unenhanced liver is normal in size, contour, and attenuation. There is no intrahepatic biliary ductal dilatation. Gallbladder: Contracted. Spleen: Normal in size and attenuation. Pancreas: The unenhanced pancreas is moderately atrophic and grossly unremarkable. Adrenal glands: Unremarkable. Kidneys: The unenhanced kidneys symmetric cortical atrophy and are without hydronephrosis. There is mild fullness of the left renal collecting system. There is a 5 mm calculus in the distal right ureter seen on image #350. This is similar appearance to the 08/09/2016 examination. There is no upstream dilatation of the right ureter. There are 2 additional nonobstructing right renal calculi measuring up to 11 mm. No left renal calculi are identified. There is no evidence of contour deforming renal mass lesion. Abdominal vasculature: The abdominal aorta is normal in course and caliber noting moderate to advanced atherosclerotic calcification. Bowel: The small bowel and colon are normal in course and caliber. There is moderate colonic diverticulosis without CT evidence of acute diverticulitis. Moderate colonic fecal retention is observed. The appendix is well-visualized and normal. Peritoneum: There is no intraperitoneal free air or abdominal ascites. There is a large fat-containing umbilical hernia. Lymphadenopathy: None. Pelvic viscera: The bladder is partially decompressed around a Agarwal catheter. Foci of intraluminal gas are likely related to instrumentation. A 3 mm bladder calculus is seen on image #360. Bladder wall thickening is nonspecific and may be related to chronic bladder outlet obstruction. The prostate gland is mildly enlarged. There are small bilateral fat-containing inguinal hernias. There is nonspecific soft tissue edema identified involving the scrotum and the penile shaft. There are foci of subcutaneous gas seen in the penis, and small foci of gas are identified within the penile corpora. Skeletal structures: The skeletal structures are osteopenic. There is moderate lumbosacral spondylosis. No lytic or blastic lesions are seen. IMPRESSION: 1. There is a 3 mm calculus identified within the bladder lumen and mild fullness of the left renal collecting system. No hydronephrosis is seen. No left renal calculi are identified, and the 3 mm nonobstructing left lower pole calculus seen on 08/09/2016 is no longer present. These findings are consistent with a recently passed left-sided kidney stone. 2. A 5 mm calculus in the distal right ureter is unchanged from 08/09/2016. There is no upstream hydroureteronephrosis. Urologic follow-up is recommended. 3. Additional nonobstructing right renal calculi as above. 4. There is marked soft tissue edema identified involving the penile shaft and scrotum. There are foci of subcutaneous gas within the penis, as well as small foci of gas within the penile corpora. This is of indeterminate etiology and significance, and could be on a posttraumatic or possibly an infectious basis. Urologic assessment is recommended. 5. The bladder is partially decompressed around a Agarwal catheter. Foci of intraluminal gas are likely related to instrumentation. Clinical correlation will be required. 6. Small pleural effusions. 7. Moderate colonic diverticulosis without CT evidence of acute diverticulitis. 8. Additional findings as above. Electronically signed by: Beni Welch M.D. 09/12/2016 1:58 PM Dictated Date/Time: 09/12/2016 1:45 PM
--- NOTE | 2016-09-12 14:34 | CONSULTATION REPORT ---
DATE OF CONSULTATION: 09/12/2016 HISTORY OF PRESENT ILLNESS: Mr. Paul is a 80-year-old gentleman admitted to the hospital last evening with complaints of severe left ankle/foot pain and swelling. Per his H\T\P, he had been admitted at [facility] approximately a month ago for urosepsis. He was unable to bear weight on his left lower extremity and presented to the ER for evaluation. He was admitted to the hospital for workup and orthopedics consult was asked for. Currently, the patient is sitting at bedside in his chair getting ready to eat lunch. He does not appear in significant acute distress. He states he has a history of an old ankle or foot fusion many years ago. He states he gets intermittent episodes of pain and disability which typically has resolved with cyclobenzaprine. He denies a history of gout. He denies a history of recent trauma. 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 He states his ankle today looks about like it normally does. He did not have any significant erythema or swelling. He can gently toggle his ankle in plantarflexion/dorsiflexion without significant increase in pain. To palpate, the ankle is fairly tender along the medial aspect. He has minimal tenderness anteriorly, posteriorly, or laterally. He denies any tenderness in the mid foot or forefoot. He denies any tenderness proximally up the lower leg towards the knee. X-RAYS: His ankle X-rays were reviewed. The ankle joint is reasonably well aligned with some mild degenerative changes. He has had a previous hindfoot fusion and there are [address] He has some mild mid foot arthritis as well. LABORATORY DATA: His white count upon admission was 19. Uric acid is pending. He did not have a sed rate or CRP. MEDICATIONS: He is currently on IV Zosyn and daptomycin. ASSESSMENT AND PLAN: A 80-year-old gentleman with an acutely inflamed left ankle, unlikely septic in origin. He states it already feels better just since admission. We will continue his current treatment regimen. This will be discussed with Dr. Worley who is the physician satellite instruction facilitator today and we will follow up with the patient daily as needed basis.
--- NOTE | 2016-09-12 16:25 | Urology Consultation ---
History General Date of Service: Sep 12, 2016. Chief Complaint: right ureteral stone Primary Care Physician: Christoph Barger M.D. Pt seen a urologist before?: Yes (Dr. Ambrocio) History of Present Illness 80 yo male presents to [facility] with c/o back and foot pain. consulted for distal right ureteral stone seen on CT and urinary retention. This pt is a pt of Dr. Ambrocio's. Most recently seen by him last week. Noted to have UR since July with indwelling ubrt catheter. He was admitted to [facility] around that time for urosepsis. Pt noted to have a distal right ureteral stone on CT, and is scheduled for cysto with clot evacuation and possible right URS on 09-[address] Ambrocio. Burt catheter in place this afternoon draining clear, yellow urine. Pt also reports scrotal and penile swelling and pain since he was last seen by . Subq gas in penis and penile corpora noted on CT. Imaging Imaging: CT Laboratory Last 24 Hours Test 09/11/16 15:35 09/11/16 15:40 09/11/16 15:46 09/11/16 18:15 White Blood Count 19.52 K/uL Red Blood Count 3.94 M/uL Hemoglobin 12.2 g/dL Hematocrit 35.5 % Mean Corpuscular Volume 90.1 fL Mean Corpuscular Hemoglobin 31.0 pg Mean Corpuscular Hemoglobin Concent 34.4 g/dl Platelet Count 307 K/uL Mean Platelet Volume 9.0 fL Neutrophils (%) (Auto) 75.1 % Lymphocytes (%) (Auto) 11.1 % Monocytes (%) (Auto) 12.8 % Eosinophils (%) (Auto) 0.3 % Basophils (%) (Auto) 0.2 % Neutrophils # (Auto) 14.68 K/uL Lymphocytes # (Auto) 2.17 K/uL Monocytes # (Auto) 2.49 K/uL Eosinophils # (Auto) 0.06 K/uL Basophils # (Auto) 0.03 K/uL RDW Standard Deviation 48.7 fL RDW Coefficient of Variation 14.7 % Immature Granulocyte % (Auto) 0.5 % Immature Granulocyte # (Auto) 0.09 K/uL Prothrombin Time 13.3 SECONDS Prothromb Time International Ratio 1.2 Sodium Level 135 mmol/L Potassium Level 4.6 mmol/L Chloride Level 101 mmol/L Carbon Dioxide Level 25 mmol/L Anion Gap 9.0 mmol/L 20.0 mmol/L Blood Urea Nitrogen 35 mg/dl Creatinine 3.50 mg/dl Est Creatinine Clear Calc Drug Dose 18.6 ml/min Estimated GFR () 18.3 Estimated GFR (Non- 15.8 BUN/Creatinine Ratio 9.9 Random Glucose 139 mg/dl Uric Acid 5.1 mg/dl Calcium Level 8.9 mg/dl Magnesium Level 1.7 mg/dl Total Bilirubin 0.6 mg/dl Direct Bilirubin 0.1 mg/dl Aspartate Amino Transf (AST/SGOT) 15 U/L Alanine Aminotransferase (ALT/SGPT) 23 U/L Alkaline Phosphatase 85 U/L Total Creatine Kinase 71 U/L Creatine Kinase MB 1.0 ng/ml Creatine Kinase MB Ratio 1.4 Troponin I 0.035 ng/ml Total Protein 9.0 gm/dl Albumin 3.2 gm/dl Bedside Lactic Acid Venous 3.94 mmol/L Bedside Hemoglobin 13.3 g/dl Bedside Hematocrit 39 % Bedside Sodium 136 mEq/L Bedside Potassium 4.6 mEq/L Bedside Chloride 100 mEq/L Bedside Total CO2 22 mEq/l Bedside Blood Urea Nitrogen 33 mg/dl Bedside Creatinine 3.0 mg/dl Bedside Glucose (other) 146 mg/dl Bedside Ionized Calcium (Kirstin) 1.11 mmol/l Urine Color YELLOW Urine Appearance TURBID Urine pH 5.5 Urine Specific Som[place] >= 1.030 Urine Protein 3+ Urine Glucose (UA) TRACE Urine Ketones TRACE Urine Occult Blood 3+ Urine Nitrite NEG Urine Bilirubin NEG Urine Urobilinogen NEG Urine Leukocyte Esterase MODERATE Urine RBC 10-30 /hpf Urine WBC >30 /hpf Urine Epithelial Cells 0-5 /lpf Urine Other Crystals TALC Urine Bacteria 3+ Urine Hyaline Casts 5-10 /lpf Urine Granular Casts 1-5 /lpf Urine Waxy Casts 0-3 /lpf Test 09/11/16 19:22 09/12/16 01:43 09/12/16 06:20 09/12/16 06:33 Lactic Acid Level 2.5 mmol/L Bedside Glucose 87 mg/dl 113 mg/dl White Blood Count 12.53 K/uL Red Blood Count 3.07 M/uL Hemoglobin 9.1 g/dL Hematocrit 27.9 % Mean Corpuscular Volume 90.9 fL Mean Corpuscular Hemoglobin 29.6 pg Mean Corpuscular Hemoglobin Concent 32.6 g/dl Platelet Count 223 K/uL Mean Platelet Volume 9.1 fL Neutrophils (%) (Auto) 67.2 % Lymphocytes (%) (Auto) 16.2 % Monocytes (%) (Auto) 14.2 % Eosinophils (%) (Auto) 1.9 % Basophils (%) (Auto) 0.2 % Neutrophils # (Auto) 8.42 K/uL Lymphocytes # (Auto) 2.03 K/uL Monocytes # (Auto) 1.78 K/uL Eosinophils # (Auto) 0.24 K/uL Basophils # (Auto) 0.02 K/uL RDW Standard Deviation 50.1 fL RDW Coefficient of Variation 15.0 % Immature Granulocyte % (Auto) 0.3 % Immature Granulocyte # (Auto) 0.04 K/uL Prothrombin Time 13.7 SECONDS Prothromb Time International Ratio 1.3 Activated Partial Thromboplast Time 34.8 SECONDS Partial Thromboplastin Ratio 1.3 Sodium Level 139 mmol/L Potassium Level 4.1 mmol/L Chloride Level 107 mmol/L Carbon Dioxide Level 26 mmol/L Anion Gap 6.0 mmol/L Blood Urea Nitrogen 39 mg/dl Creatinine 2.50 mg/dl Est Creatinine Clear Calc Drug Dose 26.3 ml/min Estimated GFR () 27.5 Estimated GFR (Non- 23.7 BUN/Creatinine Ratio 15.4 Random Glucose 92 mg/dl Calcium Level 7.8 mg/dl Magnesium Level 1.7 mg/dl Total Bilirubin 0.4 mg/dl Direct Bilirubin 0.1 mg/dl Aspartate Amino Transf (AST/SGOT) 12 U/L Alanine Aminotransferase (ALT/SGPT) 16 U/L Alkaline Phosphatase 57 U/L Total Protein 6.5 gm/dl Albumin 2.3 gm/dl Test 09/12/16 11:46 Bedside Glucose 129 mg/dl Problem List Medical Problems: (1) Leukocytosis Status: Acute (2) Sepsis Status: Acute Past History A Fib, diabetes, high cholesterol, hypertension, kidney stones Past Surgical History: pacemaker Family History FH: cancer FH: lung disease Social History Hx Tobacco Use In Past Year?: No (SMOKED 5 YRS AGE 20-23 - LIGHT SMOKER ) Smoking: non-smoker Alcohol: never Drug use: none Marital status: Occupation status: retired Allergies Coded Allergies: No Known Allergies (Unverified , 09/11/16) Medications Home Medications: Home Meds and Scripts Medications Dose Route/Sig Max Daily Dose Days Date Category Dose Instructions Multivitamin (Multivitamins) Tab 1 Tab PO DAILY 09/11/16 Reported Ultram (Tramadol HCl) 50 Mg Tab 50-100 Mg PO Q6H PRN 09/11/16 Reported Cipro (Ciprofloxacin) 250 Mg Tab 500 Mg PO BID 09/11/16 Reported LAST DOSE 09/12/2016 Levothyroxine Sodium 25 Mcg Tab 25 Mcg PO QAM 09/11/16 Reported Aricept (Donepezil Hydrochloride) 10 Mg Tab 10 Mg PO HS 09/11/16 Reported Metformin HCl 500 Mg Tab 1,000 Mg PO BID 09/11/16 Reported Prinivil (Lisinopril) 40 Mg Tab 40 Mg PO QPM 09/11/16 Reported Micronase (Glyburide) 5 Mg Tab 2.5 Mg PO QAM 09/11/16 Reported Jantoven (Warfarin Sodium) 5 Mg Tab 5 Mg PO HOLD 09/11/16 Reported MEDICATION CURRENTLY BEING HELD UNTIL OTHERWISE DIRECTED TO TAKE BY MD Inpatient Medications: Current Inpatient Medications Medications (Trade) Dose Ordered Sig/Bertha Route Start Time Stop Time Status Last Admin Dose Admin Levothyroxine Sodium (Synthroid Tab) 25 mcg DAILYBB PO 09/12/16 06:00 10/12/16 06:59 09/12/16 05:44 25 MCG Multivitamins (Multivitamin Tab) 1 tab DAILY PO 09/12/16 09:00 10/12/16 08:59 09/12/16 07:53 1 TAB Tramadol HCl 50 mg 50 mg Q4H PRN PO 09/11/16 19:45 10/11/16 19:44 09/11/16 23:53 50 MG Sodium Chloride (Nss 1000ml) 1,000 ml @ 125 mls/hr Q8H IV 09/11/16 21:30 10/11/16 21:29 09/12/16 05:30 125 MLS/HR Acetaminophen (Tylenol Tab) 650 mg Q4H PRN PO 09/11/16 19:45 10/11/16 19:44 Zolpidem Tartrate (Ambien Tab) 5 mg HSZ PRN PO 09/11/16 19:45 10/11/16 19:44 Ondansetron HCl (Zofran Inj) 4 mg Q6H PRN IV 09/11/16 19:45 10/11/16 19:44 Insulin Aspart (novoLOG ASPART) SLIDING SCALE If C... ACHS SC 09/11/16 21:00 10/11/16 20:59 09/12/16 07:51 4 UNITS Glucose (Glucose 40% Gel) UD PRN PO 09/11/16 19:45 10/11/16 19:44 Glucose (Glucose Chew Tab) 1 tabs UD PRN PO 09/11/16 19:45 10/11/16 19:44 Dextrose (Dextrose 50% 50ML Syringe) 50 ml UD PRN IV 09/11/16 19:45 10/11/16 19:44 Glucagon (Glucagon Inj) 1 mg UD PRN SQ 09/11/16 19:45 10/11/16 19:44 Morphine Sulfate (MoRPHine SULFATE INJ) 2 mg Q2H PRN IV 09/11/16 19:45 09/25/16 19:44 Morphine Sulfate 4 mg 4 mg Q2H PRN IV 09/11/16 19:45 09/25/16 19:44 Daptomycin/Sodium Chloride (Cubicin IV/Nss 50ml) 60.5 ml @ 100 mls/hr Q48H IV 09/11/16 22:00 09/21/16 21:59 09/12/16 00:37 100 MLS/HR Colchicine (Colchicine Tab) 0.6 mg BID PO 09/11/16 21:00 10/11/16 20:59 09/12/16 07:53 0.6 MG Piperacillin Sod/ Tazobactam Sod (Consult) 1 ea UD PRN N/A 09/11/16 21:30 10/11/16 21:29 Daptomycin 1 ea 1 ea UD PRN N/A 09/11/16 21:30 10/11/16 21:29 Piperacillin Sod/ Tazobactam Sod/ Dextrose (Zosyn Iv/D5 100ml) 115 ml @ 28.75 mls/ hr Q8H IV 09/12/16 12:00 09/22/16 03:59 09/12/16 13:48 28.75 MLS/HR Magnesium Oxide (Mag-Ox Tab) 400 mg QAM PO 09/12/16 12:30 10/12/16 12:29 09/12/16 13:49 400 MG Review of Systems Review of Systems Constitutional: No chills, No fever Eyes: No double vision Neurological: No dizzy Endocrine: No excessive thirst Gastrointestinal: No abdominal pain, No nausea, No vomiting Cardiovascular: No chest pain Respiratory: No shortness of breath Skin: No rash Musculoskeletal: + back pain, + problem reported (left foot and ankle pain ), + see HPI Male : + problem reported (scrotal/penile pain and edema), No blood in urine Physical Exam Vital Signs: Vital Signs Past 12 Hours Date Time Temp Pulse Resp B/P Pulse Ox O2 Delivery O2 Flow Rate FiO2 09/12/16 12:00 98 Room Air 09/12/16 11:50 36.9 86 18 107/51 98 09/12/16 08:00 Room Air 09/12/16 07:57 36.8 87 18 121/56 95 09/12/16 04:00 Room Air 09/12/16 03:58 36.6 84 18 98/51 94 Room Air Physical Exam: General Appearance: no apparent distress Eyes: bilateral eyes normal inspection ENT: hearing grossly normal Neck: no JVD Respiratory/Chest: no respiratory distress, no accessory muscle use Cardiovascular: no JVD Genitourinary - Male: Penis: phimosis, pertinent finding (swollen, tender penis with phimosis, mild erythema and balanitis with purulent drainage, no crepitus, skin necrosis or breakdown, no evidence of Rocky's gangrene or extension to adjactent tisses, erythematous areas marked) Scrotum: pertinent finding (swollen, tender scrotum) Extremities: normal inspection Neurologic/Psychiatric: alert, normal mood/affect, oriented x 3 Skin: normal color Assessment & Plan Assessment & Plan A/P: Distal right ureteral stone, urinary retention, phimosis, penile/scrotal pain and edema The pt was seen and assessed in conjunction with Dr. Potter this afternoon. Noted to have a tender/swollen penis on exam today with phimosis. Suspect balanitis at this time. Area of erythema and swelling marked. If worsening tomorrow, would consider something more worrisome such as a rocky's gangrene. Recommend leaving burt catheter in place for now until cysto and URS can be performed. Will observe stone and renal function for now. If pain develops or renal function worsens, will need to consider performing cysto and possible URS prior to his scheduled date. Thanks for the consult. Will continue to follow along with primary service at this time. The pt was seen and assessed in conjunction with Dr. Potter this afternoon.
--- NOTE | 2016-09-12 17:29 | Medical Consult ---
Consultation Date of Consultation: Sep 12, 2016. Attending Physician: Thom Torres MD Reason for Consultation: Dapto History of Present Illness Patient is a 72-year-old male who presents the emergency department with severe left foot pain, redness, and swelling all of the sudden started 2 days ago. He states that he has also had associated chills, sweats, nausea, and vomiting at home prior to admission. He does have history of urosepsis approximately 1 month ago. Patient states that he saw Dr. Ambrocio last week as an outpatient for urinary retention. He does have a Agarwal catheter placed that time. He was also noted to have a right ureteral stone on CT scan and was scheduled to have stone evacuation and cystoscopy on 09/24. The patient states that since having the Agarwal catheter placed, he has been feeling poorly. He noted increased swelling of his left medial ankle. The patient does have history of hardware in his ankle. He has never had any other problems with this hardware, but does get intermittent swelling and pain at home for which he takes an anti- inflammatory over the counter. Since admission, the patient was noted to white blood count of 19.2. His creatinine was 3.50. Ankle x-ray the left foot showed moderate degenerative changes as well as postoperative changes and partial ankle fusion. Blood and urine cultures are pending. Urinalysis showed 3+ bacteria, greater than 30 white blood cells, moderate leukocyte esterase, and 3+ blood. Past Medical/Surgical History Medical Problems: (1) Leukocytosis Status: Acute (2) Sepsis Status: Acute Medical Problems: (1) Atrial fibrillation (2) Benign essential hypertension (3) Diabetes mellitus, type 2 (4) Hyperlipidemia (5) Hypotension (6) Pacemaker (7) SIRS (systemic inflammatory response syndrome) Surgical Hx: Cystoscopy 1 week ago Family History FH: cancer FH: lung disease Noncontributory Social History Smoking Status: Never Smoker Smokeless Tobacco Use: No Alcohol Use: none Drug Use: none Marital Status: Occupation Status: retired Allergies Coded Allergies: No Known Allergies (Unverified , 09/11/16) Home Medications Reported Home Medications Medications Dose Route/Sig Max Daily Dose Days Date Category Dose Instructions Multivitamin (Multivitamins) Tab 1 Tab PO DAILY 09/11/16 Reported Ultram (Tramadol HCl) 50 Mg Tab 50-100 Mg PO Q6H PRN 09/11/16 Reported Cipro (Ciprofloxacin) 250 Mg Tab 500 Mg PO BID 09/11/16 Reported LAST DOSE 09/12/2016 Levothyroxine Sodium 25 Mcg Tab 25 Mcg PO QAM 09/11/16 Reported Aricept (Donepezil Hydrochloride) 10 Mg Tab 10 Mg PO HS 09/11/16 Reported Metformin HCl 500 Mg Tab 1,000 Mg PO BID 09/11/16 Reported Prinivil (Lisinopril) 40 Mg Tab 40 Mg PO QPM 09/11/16 Reported Micronase (Glyburide) 5 Mg Tab 2.5 Mg PO QAM 09/11/16 Reported Jantoven (Warfarin Sodium) 5 Mg Tab 5 Mg PO HOLD 09/11/16 Reported MEDICATION CURRENTLY BEING HELD UNTIL OTHERWISE DIRECTED TO TAKE BY MD Current Inpatient Medications Current Inpatient Medications Medications (Trade) Dose Ordered Sig/Bertha Route Start Time Stop Time Status Last Admin Dose Admin Levothyroxine Sodium (Synthroid Tab) 25 mcg DAILYBB PO 09/12/16 06:00 10/12/16 06:59 09/12/16 05:44 25 MCG Multivitamins (Multivitamin Tab) 1 tab DAILY PO 09/12/16 09:00 10/12/16 08:59 09/12/16 07:53 1 TAB Tramadol HCl 50 mg 50 mg Q4H PRN PO 09/11/16 19:45 10/11/16 19:44 09/11/16 23:53 50 MG Sodium Chloride (Nss 1000ml) 1,000 ml @ 125 mls/hr Q8H IV 09/11/16 21:30 10/11/16 21:29 09/12/16 05:30 125 MLS/HR Acetaminophen (Tylenol Tab) 650 mg Q4H PRN PO 09/11/16 19:45 10/11/16 19:44 Zolpidem Tartrate (Ambien Tab) 5 mg HSZ PRN PO 09/11/16 19:45 10/11/16 19:44 Ondansetron HCl (Zofran Inj) 4 mg Q6H PRN IV 09/11/16 19:45 10/11/16 19:44 Insulin Aspart (novoLOG ASPART) SLIDING SCALE If C... ACHS SC 09/11/16 21:00 10/11/16 20:59 09/12/16 07:51 4 UNITS Glucose (Glucose 40% Gel) UD PRN PO 09/11/16 19:45 10/11/16 19:44 Glucose (Glucose Chew Tab) 1 tabs UD PRN PO 09/11/16 19:45 10/11/16 19:44 Dextrose (Dextrose 50% 50ML Syringe) 50 ml UD PRN IV 09/11/16 19:45 10/11/16 19:44 Glucagon (Glucagon Inj) 1 mg UD PRN SQ 09/11/16 19:45 10/11/16 19:44 Morphine Sulfate (MoRPHine SULFATE INJ) 2 mg Q2H PRN IV 09/11/16 19:45 09/25/16 19:44 Morphine Sulfate 4 mg 4 mg Q2H PRN IV 09/11/16 19:45 09/25/16 19:44 Daptomycin/Sodium Chloride (Cubicin IV/Nss 50ml) 60.5 ml @ 100 mls/hr Q48H IV 09/11/16 22:00 09/21/16 21:59 09/12/16 00:37 100 MLS/HR Colchicine (Colchicine Tab) 0.6 mg BID PO 09/11/16 21:00 10/11/16 20:59 09/12/16 07:53 0.6 MG Piperacillin Sod/ Tazobactam Sod (Consult) 1 ea UD PRN N/A 09/11/16 21:30 10/11/16 21:29 Daptomycin 1 ea 1 ea UD PRN N/A 09/11/16 21:30 10/11/16 21:29 Piperacillin Sod/ Tazobactam Sod/ Dextrose (Zosyn Iv/D5 100ml) 115 ml @ 28.75 mls/ hr Q8H IV 09/12/16 12:00 09/22/16 03:59 Magnesium Oxide (Mag-Ox Tab) 400 mg QAM PO 09/12/16 12:30 10/12/16 12:29 Review of Systems Constitutional: + fatigue, + sweats Eyes: No worsening of vision ENT: No hearing loss Respiratory: No cough, No shortness of breath Cardiovascular: No chest pain Abdomen: + nausea, + pain, + vomiting (MEDICAL RADIATION DOSIMETRIST) Musculoskeletal: + joint pain (left ankle pain), + swelling (left ankle/foot) Genitourinary - Male: + problem reported (cystoscopy 1 week ago, Agarwal in place ), No hematuria Integumentary: + color change (ankle swelling and redness), No itch, No rash Physical Exam Date Time Temp Pulse Resp B/P Pulse Ox O2 Delivery O2 Flow Rate FiO2 09/12/16 11:50 36.9 86 18 107/51 98 09/12/16 08:00 Room Air 09/12/16 07:57 36.8 87 18 121/56 95 09/12/16 04:00 Room Air 09/12/16 03:58 36.6 84 18 98/51 94 Room Air 09/12/16 00:21 37.4 88 18 96/43 95 Room Air 09/12/16 00:00 Room Air 09/11/16 21:00 37.2 102 22 122/59 95 Room Air 09/11/16 18:20 92 18 100/53 92 Room Air 09/11/16 17:18 94 18 116/57 93 Room Air 09/11/16 16:48 95 18 95/48 97 Room Air 09/11/16 16:23 115/50 09/11/16 16:22 82 16 91/60 92 Room Air 09/11/16 15:57 95 18 86/44 92 Room Air 09/11/16 15:43 91 20 116/50 95 Room Air 09/11/16 15:37 98 09/11/16 15:20 36.5 102 22 75/49 94 Room Air General Appearance: WD/WN, no apparent distress Head: normocephalic, atraumatic Eyes: normal inspection, sclerae normal ENT: hearing grossly normal Neck: supple, trachea midline Respiratory/Chest: chest non-tender, lungs clear, normal breath sounds, no respiratory distress, no accessory muscle use Cardiovascular: no murmur, + pertinent finding (regular rate) Abdomen/GI: normal bowel sounds, non tender, soft Back: normal inspection, no CVA tenderness, + left CVA tenderness (left lower back pain) Extremities/Musculoskelatal: no calf tenderness, non-tender, + pertinent finding (left medial ankle swelling and tenderness to palpation. Trace to 1+ edema of the ankle) Neurologic/Psych: alert, normal mood/affect, oriented x 3 Skin: warm/dry, no rash Lymphatic: no adenopathy Laboratory Results LEFT ANKLE MIN 3 VIEWS ROUTINE CLINICAL HISTORY: L ankle pain pain COMPARISON: None. DISCUSSION: Moderate degenerative changes throughout. Operative changes consistent with a partial ankle fusion. Small heel spur mild soft tissue edema. Ankle mortise is aligned anatomically. IMPRESSION: Moderate degenerative as well as postoperative change as described. No acute bony abnormality. Item Value Date Time Blood Culture Received 09/11/16 1559 Blood Pending Blood Culture Received 09/11/16 1535 Blood Pending Urine Culture - Preliminary Resulted 09/11/16 1815 Urine,Catheterized NO GROWTH - LESS THAN 1,000 COLONIES/... Last 24 Hours Test 09/11/16 15:35 09/11/16 15:40 09/11/16 15:46 09/11/16 18:15 White Blood Count 19.52 K/uL Red Blood Count 3.94 M/uL Hemoglobin 12.2 g/dL Hematocrit 35.5 % Mean Corpuscular Volume 90.1 fL Mean Corpuscular Hemoglobin 31.0 pg Mean Corpuscular Hemoglobin Concent 34.4 g/dl Platelet Count 307 K/uL Mean Platelet Volume 9.0 fL Neutrophils (%) (Auto) 75.1 % Lymphocytes (%) (Auto) 11.1 % Monocytes (%) (Auto) 12.8 % Eosinophils (%) (Auto) 0.3 % Basophils (%) (Auto) 0.2 % Neutrophils # (Auto) 14.68 K/uL Lymphocytes # (Auto) 2.17 K/uL Monocytes # (Auto) 2.49 K/uL Eosinophils # (Auto) 0.06 K/uL Basophils # (Auto) 0.03 K/uL RDW Standard Deviation 48.7 fL RDW Coefficient of Variation 14.7 % Immature Granulocyte % (Auto) 0.5 % Immature Granulocyte # (Auto) 0.09 K/uL Prothrombin Time 13.3 SECONDS Prothromb Time International Ratio 1.2 Sodium Level 135 mmol/L Potassium Level 4.6 mmol/L Chloride Level 101 mmol/L Carbon Dioxide Level 25 mmol/L Anion Gap 9.0 mmol/L 20.0 mmol/L Blood Urea Nitrogen 35 mg/dl Creatinine 3.50 mg/dl Est Creatinine Clear Calc Drug Dose 18.6 ml/min Estimated GFR () 18.3 Estimated GFR (Non- 15.8 BUN/Creatinine Ratio 9.9 Random Glucose 139 mg/dl Uric Acid 5.1 mg/dl Calcium Level 8.9 mg/dl Magnesium Level 1.7 mg/dl Total Bilirubin 0.6 mg/dl Direct Bilirubin 0.1 mg/dl Aspartate Amino Transf (AST/SGOT) 15 U/L Alanine Aminotransferase (ALT/SGPT) 23 U/L Alkaline Phosphatase 85 U/L Total Creatine Kinase 71 U/L Creatine Kinase MB 1.0 ng/ml Creatine Kinase MB Ratio 1.4 Troponin I 0.035 ng/ml Total Protein 9.0 gm/dl Albumin 3.2 gm/dl Bedside Lactic Acid Venous 3.94 mmol/L Bedside Hemoglobin 13.3 g/dl Bedside Hematocrit 39 % Bedside Sodium 136 mEq/L Bedside Potassium 4.6 mEq/L Bedside Chloride 100 mEq/L Bedside Total CO2 22 mEq/l Bedside Blood Urea Nitrogen 33 mg/dl Bedside Creatinine 3.0 mg/dl Bedside Glucose (other) 146 mg/dl Bedside Ionized Calcium (Kirstin) 1.11 mmol/l Urine Color YELLOW Urine Appearance TURBID Urine pH 5.5 Urine Specific [place] >= 1.030 Urine Protein 3+ Urine Glucose (UA) TRACE Urine Ketones TRACE Urine Occult Blood 3+ Urine Nitrite NEG Urine Bilirubin NEG Urine Urobilinogen NEG Urine Leukocyte Esterase MODERATE Urine RBC 10-30 /hpf Urine WBC >30 /hpf Urine Epithelial Cells 0-5 /lpf Urine Other Crystals TALC Urine Bacteria 3+ Urine Hyaline Casts 5-10 /lpf Urine Granular Casts 1-5 /lpf Urine Waxy Casts 0-3 /lpf Test 09/11/16 19:22 09/12/16 01:43 09/12/16 06:20 09/12/16 06:33 Lactic Acid Level 2.5 mmol/L Bedside Glucose 87 mg/dl 113 mg/dl Prothrombin Time 13.7 SECONDS Prothromb Time International Ratio 1.3 Activated Partial Thromboplast Time 34.8 SECONDS Partial Thromboplastin Ratio 1.3 Sodium Level 139 mmol/L Potassium Level 4.1 mmol/L Chloride Level 107 mmol/L Carbon Dioxide Level 26 mmol/L Anion Gap 6.0 mmol/L Blood Urea Nitrogen 39 mg/dl Creatinine 2.50 mg/dl Est Creatinine Clear Calc Drug Dose 26.3 ml/min Estimated GFR () 27.5 Estimated GFR (Non- 23.7 BUN/Creatinine Ratio 15.4 Random Glucose 92 mg/dl Calcium Level 7.8 mg/dl Magnesium Level 1.7 mg/dl Total Bilirubin 0.4 mg/dl Direct Bilirubin 0.1 mg/dl Aspartate Amino Transf (AST/SGOT) 12 U/L Alanine Aminotransferase (ALT/SGPT) 16 U/L Alkaline Phosphatase 57 U/L Total Protein 6.5 gm/dl Albumin 2.3 gm/dl Test 09/12/16 11:46 Bedside Glucose 129 mg/dl Assessment & Plan Patient with left ankle swelling and 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 The patient's urinalysis also appears to be dirty, but urine blood cultures are currently pending. The patient is on IV Zosyn and daptomycin. Note an orthopedic consult is pending. Recommend continuing the broad-spectrum IV antibiotics pending culture results and further evaluation. He likely will need further imaging studies of the left ankle to rule out abscess/chronic infection of the hardware. We will continue to follow and adjust antibiotics as able. PROVIDER ADDENDUM: Patient examined and reviewed with Ms. Dougherty. Agree with above assessment.
[2016-09-12] MEDS: TRAMADOL HCL 50 MG TAB PO PRN (20:07)
--- NOTE | 2016-09-12 21:10 | Progress Note ---
Progress Note Date of Service Sep 12, 2016. Progress Note Pt seen and evaluated - on exam, foreskin/penile skin does not have any crepitus - previously marked area is visible, but he has essentially no erythema at this stage - some purulent discharge around the opening in the foreskin - no crepitus or skin sloughing in the scrotum - not outrageously uncomfortable - will continue to follow - once stable from an infection standpoint, likely needs stone treatment and TURP
--- NOTE | 2016-09-12 23:38 | Progress Note ---
Subjective Date of Service: Sep 12, 2016. Subjective Pt evaluation today including: conversation w/ patient, physical exam, chart review, lab review, review of studies (CT abd/pelvis, ankle films), conversation w/ review consultant (orthopedics, urology), review of inpatient medication list Pain: left flank - mild PO Intake: fair Voiding: burt catheter in place tele stable since admission he denies any respiratory complaints reports having been hospitalized at [facility] in July for what sounds like urinary retention, UTI, and sepsis d/c home with burt had outpatient cystoscopy with Dr. Ambrocio in the last 2 weeks burt was exchanged then, and had burt exchange again last night was told at [facility] he had kidney stones Problem List Medical Problems: (1) Leukocytosis Status: Acute (2) Sepsis Status: Acute Review of Systems Constitutional: No chills, No fever Respiratory: No cough, No shortness of breath Cardiac: No chest pain Abdomen: No nausea, No pain, No vomiting Objective Vital Signs Date Time Temp Pulse Resp B/P Pulse Ox O2 Delivery O2 Flow Rate FiO2 09/12/16 20:00 95 Room Air 09/12/16 19:50 37.5 79 18 118/56 95 Room Air 09/12/16 16:10 36.6 74 18 123/69 97 Room Air 09/12/16 16:00 98 Room Air 09/12/16 12:00 98 Room Air 09/12/16 11:50 36.9 86 18 107/51 98 09/12/16 08:00 Room Air 09/12/16 07:57 36.8 87 18 121/56 95 09/12/16 04:00 Room Air 09/12/16 03:58 36.6 84 18 98/51 94 Room Air 09/12/16 00:21 37.4 88 18 96/43 95 Room Air 09/12/16 00:00 Room Air Physical Exam General Appearance: no apparent distress ENT: pharynx normal Neck: no JVD Respiratory/Chest: lungs clear, no respiratory distress, no accessory muscle use Cardiovascular: regular rate, rhythm, no gallop, no murmur Abdomen: normal bowel sounds, soft, no organomegaly, + tenderness (left flank) Extremities: no pedal edema (right), + pedal edema (left ankle) Neurologic/Psychiatric: alert, oriented x 3 Skin: + pertinent finding (erythema about the left ankle) Comments: musculo - left ankle synovitis present with joint swelling and pain with passive /active flexion/extension; there is a scar about the left ankle Laboratory Results Last 24 Hours Test 09/12/16 01:43 09/12/16 06:20 09/12/16 06:33 09/12/16 11:46 Bedside Glucose 87 mg/dl 113 mg/dl 129 mg/dl White Blood Count 12.53 K/uL Red Blood Count 3.07 M/uL Hemoglobin 9.1 g/dL Hematocrit 27.9 % Mean Corpuscular Volume 90.9 fL Mean Corpuscular Hemoglobin 29.6 pg Mean Corpuscular Hemoglobin Concent 32.6 g/dl Platelet Count 223 K/uL Mean Platelet Volume 9.1 fL Neutrophils (%) (Auto) 67.2 % Lymphocytes (%) (Auto) 16.2 % Monocytes (%) (Auto) 14.2 % Eosinophils (%) (Auto) 1.9 % Basophils (%) (Auto) 0.2 % Neutrophils # (Auto) 8.42 K/uL Lymphocytes # (Auto) 2.03 K/uL Monocytes # (Auto) 1.78 K/uL Eosinophils # (Auto) 0.24 K/uL Basophils # (Auto) 0.02 K/uL RDW Standard Deviation 50.1 fL RDW Coefficient of Variation 15.0 % Immature Granulocyte % (Auto) 0.3 % Immature Granulocyte # (Auto) 0.04 K/uL Prothrombin Time 13.7 SECONDS Prothromb Time International Ratio 1.3 Activated Partial Thromboplast Time 34.8 SECONDS Partial Thromboplastin Ratio 1.3 Sodium Level 139 mmol/L Potassium Level 4.1 mmol/L Chloride Level 107 mmol/L Carbon Dioxide Level 26 mmol/L Anion Gap 6.0 mmol/L Blood Urea Nitrogen 39 mg/dl Creatinine 2.50 mg/dl Est Creatinine Clear Calc Drug Dose 26.3 ml/min Estimated GFR () 27.5 Estimated GFR (Non- 23.7 BUN/Creatinine Ratio 15.4 Random Glucose 92 mg/dl Calcium Level 7.8 mg/dl Magnesium Level 1.7 mg/dl Total Bilirubin 0.4 mg/dl Direct Bilirubin 0.1 mg/dl Aspartate Amino Transf (AST/SGOT) 12 U/L Alanine Aminotransferase (ALT/SGPT) 16 U/L Alkaline Phosphatase 57 U/L Total Protein 6.5 gm/dl Albumin 2.3 gm/dl Test 09/12/16 16:05 09/12/16 19:50 Bedside Glucose 141 mg/dl 120 mg/dl Assessment and Plan 80yo male with: 1. sepsis, suspected source the urine; r/o septic arthritis of left ankle especially in light of known hardware in the joint. Cont broad-spectrum abx and follow cx's. 2. acute kidney injury - improving. Suspect ATN from sepsis. Unknown baseline renal function. No obstruction seen on CT today. Hydrate with repeat BMP in am. 3. left flank pain - due to reported h/o renal stones a CT was obtained. This shows that he likely passed a left-sided kidney stone in the last few days. He has a distal right kidney stone in the ureter. Urology consulted for management of his stones. 4. abnormal penis on imaging - defer management to urology. 5. left ankle arthritis/pain - gout? septic? consulted orthopedics for their opinion. in meantime cont with colchicine. 6. a. fib s/p pacemaker placement - noted. EKG with pacing. Previously taking coumadin; this is on hold due to potential for needing a procedure. If no procedures are planned then resume anticoagulation. 7. protein calorie malnutrition, at least mild-moderate - noted. 8. hypomagnesemia - replace with mag oxide. 9. proteinuria and hematuria on u/a - will need repeat u/a later this stay. Depending on where Cr settles will need outpatient nephrology f/u. 10. hypothyroidism - cont synthroid. 11. DVT proph - SCDs for now. 12. FEN - cont fluids, repeat BMP am. 13. T2DM - control adequate without intervention. Follow. obtain records from [facility] will need Pt, Ot consultations Continued [facility] stay due to: voiding difficulties, ambulation difficulties, multiple IV medications needed Discharge planning: uncertain
[2016-09-13] VITALS (9 sets, daily range): BP systolic 102–159; BP diastolic 56–78; PULSE 68–103; TEMP 36.6–37; O2SAT 95–97
[2016-09-13] MEDS: SODIUM CHLORIDE 0.9% 1000ML 1,000 ML IV SCH (00:45)
[2016-09-13] MEDS: PIPERACILL/TAZOBAC IV 3.375 GM in DEXTROSE 5% 100ML 100 ML IV SCH (03:54)
[2016-09-13 06:18] LABS: BASO % 0.5 %; BASO ABS # 0.05 K/uL (0-0.2); COMPLETE YES; HEMATOCRIT 28.2 % (42-52); IG% 0.2 %; LYMPH ABS # 1.67 K/uL (1.2-3.4); MEAN CELL VOLUME 89.8 fL (80-100); MEAN CORPUSCULAR HEMOGLOBIN 29.9 pg (25-34); MEAN CORPUSCULAR HGB CONC 33.3 g/dl (32-36); MONO % 13.1 %; NEUT % 66.2 %; PLATELET COUNT 238 K/uL (130-400); RED BLOOD COUNT 3.14 M/uL (4.7-6.1); WHITE BLOOD COUNT 9.83 K/uL (4.8-10.8)
[2016-09-13] MEDS: LEVOTHYROXINE 25 MCG TAB PO SCH (06:33)
[2016-09-13] MEDS: TRAMADOL HCL 50 MG TAB PO PRN (06:33)
[2016-09-13] MEDS: INSULIN ASPART 100 UNITS/ML 3 ML PEN SC SCH ×4 (07:00→21:39)
[2016-09-13 07:08] LABS: BUN/CREATININE RATIO 18.2 (10-20); CALCIUM 7.9 mg/dl (8.5-10.1); CREATININE 1.2 mg/dl (0.60-1.40); POTASSIUM 4.2 mmol/L (3.5-5.1)
--- NOTE | 2016-09-13 09:15 | Progress Note ---
Progress Note Date of Service Sep 13, 2016. Progress Note S: further improved overnight - minimal pain - still tolerating catheter - no flank pain/renal colic - no fevers O: 09/13/16 05:55 Red Blood Count 3.14, Mean Corpuscular Volume 89.8, Mean Corpuscular Hemoglobin 29.9, Mean Corpuscular Hemoglobin Concent 33.3, Mean Platelet Volume 9.0, Neutrophils (%) (Auto) 66.2, Lymphocytes (%) (Auto) 17.0, Monocytes (%) (Auto) 13.1, Eosinophils (%) (Auto) 3.0, Basophils (%) (Auto) 0.5, Neutrophils # (Auto ) 6.51, Lymphocytes # (Auto) 1.67, Monocytes # (Auto) 1.29, Eosinophils # (Auto ) 0.29, Basophils # (Auto) 0.05 09/13/16 05:55 Test 09/13/16 05:55 09/13/16 06:48 White Blood Count 9.83 K/uL (4.8-10.8) Red Blood Count 3.14 M/uL (4.7-6.1) Hemoglobin 9.4 g/dL (14.0-18.0) Hematocrit 28.2 % (42-52) Mean Corpuscular Volume 89.8 fL (80-100) Mean Corpuscular Hemoglobin 29.9 pg (25-34) Mean Corpuscular Hemoglobin Concent 33.3 g/dl (32-36) Platelet Count 238 K/uL (130-400) Mean Platelet Volume 9.0 fL (7.4-10.4) Neutrophils (%) (Auto) 66.2 % Lymphocytes (%) (Auto) 17.0 % Monocytes (%) (Auto) 13.1 % Eosinophils (%) (Auto) 3.0 % Basophils (%) (Auto) 0.5 % Neutrophils # (Auto) 6.51 K/uL (1.4-6.5) Lymphocytes # (Auto) 1.67 K/uL (1.2-3.4) Monocytes # (Auto) 1.29 K/uL (0.11-0.59) Eosinophils # (Auto) 0.29 K/uL (0-0.5) Basophils # (Auto) 0.05 K/uL (0-0.2) RDW Standard Deviation 48.8 fL (36.4-46.3) RDW Coefficient of Variation 14.9 % (11.5-14.5) Immature Granulocyte % (Auto) 0.2 % Immature Granulocyte # (Auto) 0.02 K/uL (0.00-0.02) Anion Gap 5.0 mmol/L (3-11) Est Creatinine Clear Calc Drug Dose 55.2 ml/min Estimated GFR () 66.7 Estimated GFR (Non- 57.6 BUN/Creatinine Ratio 18.2 (10-20) Calcium Level 7.9 mg/dl (8.5-10.1) Bedside Glucose 127 mg/dl (70-99) Vital Signs Past 12 Hours Date Time Temp Pulse Resp B/P Pulse Ox O2 Delivery O2 Flow Rate FiO2 09/13/16 08:04 36.8 73 18 124/66 95 09/13/16 04:00 37.0 70 20 111/61 95 Room Air 09/13/16 04:00 95 Room Air 09/13/16 00:30 36.6 73 20 102/56 96 Room Air 09/13/16 00:01 96 Room Air NAD AAOx3 no resp distress RRR abd soft - penile skin and foreskin still edematous, but less so than yesterday - scrotal skin with mild edema - no erythema/no crepitus/ no visible signs of even cellulitis A/P: Urinary retention; ureteral stone; infection - cultures negative - subjectively and objectively improved - no herrera for surgical intervention - cont antibiotics now - ultimately will need TURP and stone treatment, but this may be best accomplished as an outpt while still on antibiotic coverage
[2016-09-13] MEDS ORDERED: VANCOMYCIN CONSULT ACTIVE PRN (10:45)
[2016-09-13] MEDS ORDERED: VANCOMYCIN INJ 2,200 MG in SODIUM CHLORIDE 0.9% 500ML 500 ML IV ONE (10:45)
--- NOTE | 2016-09-13 11:03 | Infectious Disease Progress Nt ---
Progress Note Date of Service Sep 13, 2016. Subjective Pt evaluation today including: conversation w/ patient, physical exam, chart review, lab review, review of studies, conversation w/ strategic sourcing consultant (Pharmacy- [facility]), review of inpatient medication list WBC count was 9.83 this morning- trending down. Creatinine improved to 1.20. Noted orthopedics saw this patient- reviewed consult. Ortho feels unlikely septic ankle & to continue current treatment. Urology also saw patient and noted scrotal and penile swelling and pain. Phimosis was noted on exam along with mild erythema of the penile shaft and tenderness to palpation of the scrotum. Feel that this is improving on current therapy. CT scan of the abdomen/ pelvis showed likely recently passed left kidney stone along with marked soft tissue edema of the penile shaft and scrotum with subcutaneous gas noted in the penis and penile corpora. All Other Systems: Reviewed and Negative Medications Current Inpatient Medications Medications (Trade) Dose Ordered Sig/Bertha Route Start Time Stop Time Status Last Admin Dose Admin Levothyroxine Sodium (Synthroid Tab) 25 mcg DAILYBB PO 09/12/16 06:00 10/12/16 06:59 09/13/16 06:33 25 MCG Multivitamins (Multivitamin Tab) 1 tab DAILY PO 09/12/16 09:00 10/12/16 08:59 09/12/16 07:53 1 TAB Tramadol HCl (Ultram Tab) 50 mg Q4H PRN PO 09/11/16 19:45 10/11/16 19:44 09/13/16 06:33 50 MG Acetaminophen (Tylenol Tab) 650 mg Q4H PRN PO 09/11/16 19:45 10/11/16 19:44 Zolpidem Tartrate (Ambien Tab) 5 mg HSZ PRN PO 09/11/16 19:45 10/11/16 19:44 Ondansetron HCl (Zofran Inj) 4 mg Q6H PRN IV 09/11/16 19:45 10/11/16 19:44 Insulin Aspart (novoLOG ASPART) SLIDING SCALE If C... ACHS SC 09/11/16 21:00 10/11/16 20:59 09/12/16 17:17 5 UNITS Glucose (Glucose 40% Gel) UD PRN PO 09/11/16 19:45 10/11/16 19:44 Glucose (Glucose Chew Tab) 1 tabs UD PRN PO 09/11/16 19:45 10/11/16 19:44 Dextrose (Dextrose 50% 50ML Syringe) 50 ml UD PRN IV 09/11/16 19:45 10/11/16 19:44 Glucagon (Glucagon Inj) 1 mg UD PRN SQ 09/11/16 19:45 10/11/16 19:44 Morphine Sulfate (MoRPHine SULFATE INJ) 2 mg Q2H PRN IV 09/11/16 19:45 09/25/16 19:44 09/13/16 08:34 2 MG Morphine Sulfate (MoRPHine SULFATE INJ) 4 mg Q2H PRN IV 09/11/16 19:45 09/25/16 19:44 Colchicine (Colchicine Tab) 0.6 mg BID PO 09/11/16 21:00 10/11/16 20:59 09/12/16 21:31 0.6 MG Piperacillin Sod/ Tazobactam Sod 1 ea 1 ea UD PRN N/A 09/11/16 21:30 10/11/16 21:29 Piperacillin Sod/ Tazobactam Sod/ Dextrose (Zosyn Iv/D5 100ml) 115 ml @ 28.75 mls/ hr Q8H IV 09/12/16 12:00 09/22/16 03:59 09/13/16 03:54 28.75 MLS/HR Magnesium Oxide 400 mg 400 mg QAM PO 09/12/16 12:30 10/12/16 12:29 09/12/16 13:49 400 MG Vancomycin HCl 1700 mg/Sodium Chloride 284 ml @ 125 mls/hr Q12 IV 09/13/16 21:00 09/23/16 20:59 UNV Vancomycin HCl/ Sodium Chloride (Vancomycin Inj/ Nss 500ml) 544 ml @ 200 mls/hr TODAY@1045 ONCE IV 09/13/16 10:45 09/13/16 13:28 Vancomycin HCl (Consult) 1 ea UD PRN N/A 09/13/16 10:45 10/13/16 10:44 Objective Vital Signs Date Time Temp Pulse Resp B/P Pulse Ox O2 Delivery O2 Flow Rate FiO2 09/13/16 08:04 36.8 73 18 124/66 95 09/13/16 04:00 37.0 70 20 111/61 95 Room Air 09/13/16 04:00 95 Room Air 09/13/16 00:30 36.6 73 20 102/56 96 Room Air 09/13/16 00:01 96 Room Air 09/12/16 20:00 95 Room Air 09/12/16 19:50 37.5 79 18 118/56 95 Room Air 09/12/16 16:10 36.6 74 18 123/69 97 Room Air 09/12/16 16:00 98 Room Air 09/12/16 12:00 98 Room Air 09/12/16 11:50 36.9 86 18 107/51 98 Physical Exam General Appearance: WD/WN, no apparent distress Eyes: normal inspection, sclerae normal ENT: hearing grossly normal Neck: supple, trachea midline Respiratory/Chest: chest non-tender, normal breath sounds, + wheezing (very mild end expiratory right lower lobe) Cardiovascular: regular rate, rhythm Abdomen: normal bowel sounds, non tender, soft, + pertinent finding Neurologic/Psychiatric: alert, normal mood/affect Skin: normal color, warm/dry, no rash Laboratory Results CT SCAN OF THE ABDOMEN AND PELVIS WITHOUT IV CONTRAST CLINICAL HISTORY: Left-sided abdominal pain. Sepsis. COMPARISON STUDY: Abdominal CT dated 08/09/2016. TECHNIQUE: CT scan of the abdomen and pelvis is performed from the lung bases to the proximal femora. Images are reviewed in the axial, sagittal, and coronal planes. IV contrast was not administered for this examination as per the referring clinician. Note that the examination was performed in significantly suboptimal fashion without oral and IV contrast.. Automated dose control exposure was utilized. CT DOSE: 1571.90 mGy.cm FINDINGS: Lung bases: The heart is top normal in size and there is a small pericardial effusion. Pacemaker leads are identified. The coronary arteries are densely calcified. There are small pleural effusions with dependent atelectasis. No airspace consolidation is seen typical for pneumonia. There is a small hiatal hernia. Liver: The unenhanced liver is normal in size, contour, and attenuation. There is no intrahepatic biliary ductal dilatation. Gallbladder: Contracted. Spleen: Normal in size and attenuation. Pancreas: The unenhanced pancreas is moderately atrophic and grossly unremarkable. Adrenal glands: Unremarkable. Kidneys: The unenhanced kidneys symmetric cortical atrophy and are without hydronephrosis. There is mild fullness of the left renal collecting system. There is a 5 mm calculus in the distal right ureter seen on image #350. This is similar appearance to the 08/09/2016 examination. There is no upstream dilatation of the right ureter. There are 2 additional nonobstructing right renal calculi measuring up to 11 mm. No left renal calculi are identified. There is no evidence of contour deforming renal mass lesion. Abdominal vasculature: The abdominal aorta is normal in course and caliber noting moderate to advanced atherosclerotic calcification. Bowel: The small bowel and colon are normal in course and caliber. There is moderate colonic diverticulosis without CT evidence of acute diverticulitis. Moderate colonic fecal retention is observed. The appendix is well-visualized and normal. Peritoneum: There is no intraperitoneal free air or abdominal ascites. There is a large fat-containing umbilical hernia. Lymphadenopathy: None. Pelvic viscera: The bladder is partially decompressed around a Agarwal catheter. Foci of intraluminal gas are likely related to instrumentation. A 3 mm bladder calculus is seen on image #360. Bladder wall thickening is nonspecific and may be related to chronic bladder outlet obstruction. The prostate gland is mildly enlarged. There are small bilateral fat-containing inguinal hernias. There is nonspecific soft tissue edema identified involving the scrotum and the penile shaft. There are foci of subcutaneous gas seen in the penis, and small foci of gas are identified within the penile corpora. Skeletal structures: The skeletal structures are osteopenic. There is moderate lumbosacral spondylosis. No lytic or blastic lesions are seen. IMPRESSION: 1. There is a 3 mm calculus identified within the bladder lumen and mild fullness of the left renal collecting system. No hydronephrosis is seen. No left renal calculi are identified, and the 3 mm nonobstructing left lower pole calculus seen on 08/09/2016 is no longer present. These findings are consistent with a recently passed left-sided kidney stone. 2. A 5 mm calculus in the distal right ureter is unchanged from 08/09/2016. There is no upstream hydroureteronephrosis. Urologic follow-up is recommended. 3. Additional nonobstructing right renal calculi as above. 4. There is marked soft tissue edema identified involving the penile shaft and scrotum. There are foci of subcutaneous gas within the penis, as well as small foci of gas within the penile corpora. This is of indeterminate etiology and significance, and could be on a posttraumatic or possibly an infectious basis. Urologic assessment is recommended. 5. The bladder is partially decompressed around a Agarwal catheter. Foci of intraluminal gas are likely related to instrumentation. Clinical correlation will be required. 6. Small pleural effusions. 7. Moderate colonic diverticulosis without CT evidence of acute diverticulitis. 8. Additional findings as above. Item Value Date Time Urine Culture - Preliminary Resulted 09/11/16 1815 Urine,Catheterized NO GROWTH - LESS THAN 1,000 COLONIES/... Blood Culture - Preliminary Resulted 09/11/16 1559 Blood NO GROWTH TO DATE. Blood Culture - Preliminary Resulted 09/11/16 1535 Blood NO GROWTH TO DATE. Last 24 Hours Test 09/12/16 11:46 09/12/16 16:05 09/12/16 19:50 09/13/16 05:55 Bedside Glucose 129 mg/dl 141 mg/dl 120 mg/dl White Blood Count 9.83 K/uL Red Blood Count 3.14 M/uL Hemoglobin 9.4 g/dL Hematocrit 28.2 % Mean Corpuscular Volume 89.8 fL Mean Corpuscular Hemoglobin 29.9 pg Mean Corpuscular Hemoglobin Concent 33.3 g/dl Platelet Count 238 K/uL Mean Platelet Volume 9.0 fL Neutrophils (%) (Auto) 66.2 % Lymphocytes (%) (Auto) 17.0 % Monocytes (%) (Auto) 13.1 % Eosinophils (%) (Auto) 3.0 % Basophils (%) (Auto) 0.5 % Neutrophils # (Auto) 6.51 K/uL Lymphocytes # (Auto) 1.67 K/uL Monocytes # (Auto) 1.29 K/uL Eosinophils # (Auto) 0.29 K/uL Basophils # (Auto) 0.05 K/uL RDW Standard Deviation 48.8 fL RDW Coefficient of Variation 14.9 % Immature Granulocyte % (Auto) 0.2 % Immature Granulocyte # (Auto) 0.02 K/uL Sodium Level 139 mmol/L Potassium Level 4.2 mmol/L Chloride Level 107 mmol/L Carbon Dioxide Level 27 mmol/L Anion Gap 5.0 mmol/L Blood Urea Nitrogen 22 mg/dl Creatinine 1.20 mg/dl Est Creatinine Clear Calc Drug Dose 55.2 ml/min Estimated GFR () 66.7 Estimated GFR (Non- 57.6 BUN/Creatinine Ratio 18.2 Random Glucose 119 mg/dl Calcium Level 7.9 mg/dl Test 09/13/16 06:48 Bedside Glucose 127 mg/dl Assessment and Plan Patient with left ankle swelling and pain in the setting of chronic hardware the left ankle- ortho evaluated and feels continue current treatment very unlikely infectious. Also with scrotal/penile swelling and subcutaneous gas with phimosis- likely infectious. Currently on IV Zosyn and Dapto- discussed with pharmacy, will D/C Dapto and change to IV Vancomycin for now since creatinine has greatly improved. Likely will require at least 1-2 more days of IV therapy. Pending urology opinion and further improvement, patient likely could transition to PO Levaquin or Augmentin to complete at least 1-2 more weeks of antibiotic therapy. We will follow. PROVIDER ADDENDUM: Patient reviewed with Ms. Dougherty. Agree with above assessment.
[2016-09-13] MEDS: COLCHICINE 0.6 MG TAB PO SCH ×2 (11:10→20:12)
[2016-09-13] MEDS: MAGNESIUM OXIDE 400 MG TAB PO SCH (11:10)
[2016-09-13] MEDS: MULTIVITAMIN TAB PO SCH (11:10)
--- NOTE | 2016-09-13 11:50 | Pharmacy Progress Note ---
Pharmacy Antibiotic Consult Date of Service: Sep 13, 2016. Pharmacy Dosing Scope Pharmacy is consulted to initiate vancomycin IV dosing therapy, order appropriate labs and adjust drug dose/frequency. Subjective The patient is a 80 year old male admitted on Sep 11, 2016 at 19:46. Objective Height (Feet): 5 Height (Inches): 8.00 Weight (Kilograms): 89.600 Lab Results (24hrs): Laboratory Tests Test 09/13/16 05:55 BUN/Creatinine Ratio 18.2 Blood Urea Nitrogen 22 mg/dl Creatinine 1.20 mg/dl White Blood Count 9.83 K/uL Red Blood Count 3.14 M/uL Hemoglobin 9.4 g/dL Hematocrit 28.2 % Mean Corpuscular Volume 89.8 fL Mean Corpuscular Hemoglobin 29.9 pg Mean Corpuscular Hemoglobin Concent 33.3 g/dl Platelet Count 238 K/uL Mean Platelet Volume 9.0 fL Neutrophils (%) (Auto) 66.2 % Lymphocytes (%) (Auto) 17.0 % Monocytes (%) (Auto) 13.1 % Eosinophils (%) (Auto) 3.0 % Basophils (%) (Auto) 0.5 % Neutrophils # (Auto) 6.51 K/uL Lymphocytes # (Auto) 1.67 K/uL Monocytes # (Auto) 1.29 K/uL Eosinophils # (Auto) 0.29 K/uL Basophils # (Auto) 0.05 K/uL Assessment & Plan Patient started on vancomycin (previously on daptomycin) and zosyn for possible infected ankle and cellulitis. ID is following the patient. Per ID note feels patient likely require 1-2 days of IV therapy and could possibly transition to PO therapy Vancomycin: * Received LD of 2200 mg (~25 mg/kg) iv x 1 * Will start vancomycin 1000 mg (~11 mg/kg) iv q 18 hrs to achieve an estimated trough ~15 mcg/ml (goal for cellulitis) * Patient only to be on IV antibiotics 1-2 days, therefore will wait to order a level unless duration extended * Estimated kinetics: t/12~15 hrs, ke~0.045, CrCl ~55 ml/min Zosyn: * 3.375 gm iv q 8 hrs ; appropriate for CrCl>20 ml/min, no changes necessary Pharmacy will continue to follow and will adjust dose/frequency as necessary. Thank you
[2016-09-13] MEDS: KETOCONAZOLE 2% CR 15 GM TUBE EXT SCH ×2 (13:08→20:13)
[2016-09-13] MEDS: DICLOFENAC SOD 1% GEL 100 GM TUBE EXT SCH ×3 (13:21→20:14)
--- NOTE | 2016-09-13 16:04 | Orthopedic Progress Note ---
Orthopedic Progress Note Date of Service Sep 13, 2016. Subjective Reports: complaints (Continued though improving right hindfoot pain and swelling. ), feeling well, Denies: SOB, calf pain, chest pain, light headedness , nausea / vomiting Additional Notes: Improving condition overall with current therapy. Objective calves soft nontender, N/V intact, capillary refill less than 2 sec., A&O x3, toes mobile Valgus alignment left hindfoot. Significant TTP subfibular and medial hindfoot. Mild effusion subtalar joint. No proximal streaking or erythema. DP/PT 2/4 B LE. Date Time Temp Pulse Resp B/P Pulse Ox O2 Delivery O2 Flow Rate FiO2 09/13/16 15:48 36.9 86 20 153/75 96 Room Air 09/13/16 12:05 Room Air 09/13/16 11:33 36.7 68 18 138/65 97 09/13/16 08:05 Room Air 09/13/16 08:04 36.8 73 18 124/66 95 09/13/16 04:00 37.0 70 20 111/61 95 Room Air 09/13/16 04:00 95 Room Air 09/13/16 00:30 36.6 73 20 102/56 96 Room Air 09/13/16 00:01 96 Room Air 09/12/16 20:00 95 Room Air 09/12/16 19:50 37.5 79 18 118/56 95 Room Air 09/12/16 16:10 36.6 74 18 123/69 97 Room Air 09/12/16 16:00 98 Room Air Laboratory Results 24 Hours: Test 09/13/16 05:55 White Blood Count 9.83 K/uL Red Blood Count 3.14 M/uL Hemoglobin 9.4 g/dL Hematocrit 28.2 % Mean Corpuscular Volume 89.8 fL Mean Corpuscular Hemoglobin 29.9 pg Mean Corpuscular Hemoglobin Concent 33.3 g/dl Platelet Count 238 K/uL Mean Platelet Volume 9.0 fL Neutrophils (%) (Auto) 66.2 % Lymphocytes (%) (Auto) 17.0 % Monocytes (%) (Auto) 13.1 % Eosinophils (%) (Auto) 3.0 % Basophils (%) (Auto) 0.5 % Neutrophils # (Auto) 6.51 K/uL Lymphocytes # (Auto) 1.67 K/uL Monocytes # (Auto) 1.29 K/uL Eosinophils # (Auto) 0.29 K/uL Basophils # (Auto) 0.05 K/uL Assessment & Plan Assessment: Left hindfoot DJD. Subtalar effusion-inflammatory, doubt septic joint Previous Left Triple arthrodesis Retained HDWR L hindfoot Valgus alignment of the heel with subfibular impingement Achilles contracture Plan: May ambulate intermittently prn CT scan left ankle to assess possibility of nonunion of fusion, assess alignment of hindfoot fusion and stability of current hardware. Cont current therapy per medical service
[2016-09-13] MEDS ORDERED: OPTIRAY 320 IV PRN (16:30)
[2016-09-13] MEDS ORDERED: SODIUM CHLORIDE 0.9% 500ML 500 ML IV SCH (17:15)
[2016-09-13] MEDS: WARFARIN SOD 5 MG TAB PO SCH (17:35)
--- NOTE | 2016-09-13 19:38 | DIAGNOSTIC IMAGING REPORT ---
CT LEFT ANKLE WITH CONTRAST CT DOSE: 155.49 mGy.cm CLINICAL HISTORY: Left ankle pain. Possible hardware failure. History of triple arthrodesis. Possible abscess TECHNIQUE: Helical images were acquired in the transverse plane during administration 115 cc Optiray 320. Sagittal and coronal reformatted images were acquired COMPARISON STUDY: Conventional radiographic study dated 09/11/2016 FINDINGS: There are no bony destructive changes to indicate acute osteomyelitis. There are postsurgical changes of a talonavicular and talocalcaneal fusion. There is no evidence of hardware fracture. There is edema within the plantar soft tissues and possible edema involving the intrinsic muscles of the foot. There are no fluid collections to indicate a drainable abscess IMPRESSION: 1. No CT evidence of acute osteomyelitis 2. Postsurgical changes of a hindfoot triple arthrodesis 3. Edema within the plantar soft tissues and possible edema involving the intrinsic muscles of the foot. Electronically signed by: Alirio King M.D. 09/13/2016 7:37 PM Dictated Date/Time: 09/13/2016 7:31 PM
[2016-09-13] MEDS ORDERED: VANCOMYCIN INJ 1,700 MG in SODIUM CHLORIDE 0.9% 250ML 250 ML IV SCH (21:00)
[2016-09-14] MEDS ORDERED: VANCOMYCIN INJ 1,000 MG in SODIUM CHLORIDE 0.9% 250ML 250 ML IV SCH ×2 (06:00→22:00)
--- NOTE | 2016-09-14 06:01 | Progress Note ---
Subjective Date of Service: late entry for visit September 13, 2016. Subjective Pt evaluation today including: conversation w/ patient, physical exam, chart review, lab review, review of studies (CT left ankle), review of inpatient medication list Pain: left foot - modestly improved PO Intake: eating well Voiding: burt catheter in place tele stable overnight he overall feels better refused PT when they came to bedside today seen by urology and orthopedics today for ongoing issues Problem List Medical Problems: (1) Leukocytosis Status: Acute (2) Sepsis Status: Acute Review of Systems Constitutional: No chills, No fever Respiratory: No cough, No shortness of breath Cardiac: No chest pain Abdomen: No nausea, No pain Objective Vital Signs Date Time Temp Pulse Resp B/P Pulse Ox O2 Delivery O2 Flow Rate FiO2 09/14/16 00:00 Room Air 09/13/16 23:50 70 156/71 09/13/16 23:06 36.6 103 18 159/78 96 Room Air 09/13/16 18:59 36.9 86 20 96 09/13/16 16:00 Room Air 09/13/16 15:48 36.9 86 20 153/75 96 Room Air 09/13/16 12:05 Room Air 09/13/16 11:33 36.7 68 18 138/65 97 09/13/16 08:05 Room Air 09/13/16 08:04 36.8 73 18 124/66 95 Physical Exam General Appearance: no apparent distress ENT: pharynx normal Neck: no JVD Respiratory/Chest: lungs clear, no respiratory distress, no accessory muscle use Cardiovascular: regular rate, rhythm, no gallop, no murmur Abdomen: normal bowel sounds, non tender, soft, no organomegaly Extremities: no pedal edema, + pertinent finding (left ankle - less ankle swelling, redness, and tenderness but still quite sore to palpation) Neurologic/Psychiatric: alert, oriented x 3 Comments: musculo - foot deformity, left ankle/foot Laboratory Results Last 24 Hours Test 09/13/16 06:48 09/13/16 11:13 09/13/16 16:31 09/13/16 21:28 Bedside Glucose 127 mg/dl 236 mg/dl 143 mg/dl 263 mg/dl Test 09/14/16 04:44 Assessment and Plan 80yo male with: 1. sepsis, suspected source the urine; orthopedics feels that the left ankle is NOT infected. All cx's negative. Urine cx with insignificant # of GPC. Appreciate ID consult. Will stop zosyn. Leave vanco. Transition to po augmentin or levaquin for 1-2 weeks soon. 2. acute kidney injury - resolved. Suspect ATN from sepsis. No obstruction seen on CT but the recently passed urine stone could have contributed to LARA. Repeat BMP am. 3. left flank pain - due to reported h/o renal stones a CT was obtained. This showed that he likely passed a left-sided kidney stone in the last few days. He has a distal right kidney stone in the ureter. Urology consulted for management of his stones. 4. abnormal penis on imaging and exam- defer management to urology. 5. left ankle arthritis/pain - gout? improving with colchicine. will also place on low-dose prednisone. CT ankle ordered by Dr. Grey. defer any further recs to ortho. 6. a. fib s/p pacemaker placement - noted. EKG with pacing. Previously taking coumadin - will resume today. 7. protein calorie malnutrition, at least mild-moderate - noted. 8. hypomagnesemia - replace with mag oxide. 9. proteinuria and hematuria on u/a - will need repeat u/a later this stay. 10. hypothyroidism - cont synthroid. 11. DVT proph - SCDs and warfarin. 12. FEN - can likely stop fluids later tonight; BMP am; eating better. 13. T2DM - control adequate with novolog but sugars may rise with prednisone. follow. obtain records from [facility], Ot consultations tx to med/surg Continued [facility] stay due to: voiding difficulties, ambulation difficulties, multiple IV medications needed Discharge planning: uncertain
[2016-09-14] MEDS: LEVOTHYROXINE 25 MCG TAB PO SCH (06:05)
[2016-09-14 07:49] LABS: BASO % 0.2 %; BASO ABS # 0.02 K/uL (0-0.2); COMPLETE YES; EOS % 0.3 %; HEMATOCRIT 29.3 % (42-52); IG% 0.4 %; LYMPH % 12.1 %; MEAN CELL VOLUME 86.9 fL (80-100); MEAN CORPUSCULAR HGB CONC 34.5 g/dl (32-36); MEAN PLATELET VOLUME 8.8 fL (7.4-10.4); MONO % 10.4 %; NEUT % 76.6 %; PLATELET COUNT 273 K/uL (130-400); RED BLOOD COUNT 3.37 M/uL (4.7-6.1); WHITE BLOOD COUNT 10.74 K/uL (4.8-10.8)
[2016-09-14 08:00] VITALS: O2SAT 95
[2016-09-14 08:02] LABS: INR 1.3 (0.9-1.1)
[2016-09-14 08:14] LABS: BUN/CREATININE RATIO 18.3 (10-20); CALCIUM 8.6 mg/dl (8.5-10.1); CREATININE 0.95 mg/dl (0.60-1.40); POTASSIUM 3.9 mmol/L (3.5-5.1)
[2016-09-14 08:15] VITALS: BP 155/74; PULSE 68; TEMP 36.4; O2SAT 97
[2016-09-14] MEDS: MAGNESIUM OXIDE 400 MG TAB PO SCH (08:34)
[2016-09-14] MEDS: DICLOFENAC SOD 1% GEL 100 GM TUBE EXT SCH ×4 (08:34→20:01)
[2016-09-14] MEDS: COLCHICINE 0.6 MG TAB PO SCH ×2 (08:34→20:01)
[2016-09-14] MEDS: MULTIVITAMIN TAB PO SCH (08:34)
[2016-09-14] MEDS: KETOCONAZOLE 2% CR 15 GM TUBE EXT SCH ×2 (08:35→20:01)
[2016-09-14] MEDS: INSULIN ASPART 100 UNITS/ML 3 ML PEN SC SCH ×4 (08:41→21:30)
[2016-09-14] MEDS: SENNA 8.6 MG TAB PO SCH (12:00)
[2016-09-14] MEDS: POLYETHYLENE (MIRALAX) 17 GM PACK PO SCH (12:00)
[2016-09-14] MEDS ORDERED: INSULIN GLARGINE SOLOSTAR 100 UNITS/ML 3 ML PEN SC SCH (13:00)
[2016-09-14] MEDS ORDERED: LANTUS PER UNIT CHARGE SQ SCH (13:30)
--- NOTE | 2016-09-14 13:48 | Progress Note ---
Subjective Date of Service: Sep 14, 2016. Subjective Pt evaluation today including: conversation w/ patient, conversation w/ family , physical exam, chart review, lab review Voiding: burt catheter in place pt feeling better Problem List Medical Problems: (1) Leukocytosis Status: Acute (2) Sepsis Status: Acute Objective Vital Signs Date Time Temp Pulse Resp B/P Pulse Ox O2 Delivery O2 Flow Rate FiO2 09/14/16 08:15 36.4 68 18 155/74 97 Room Air 09/14/16 08:00 95 Room Air 09/14/16 00:00 Room Air 09/13/16 23:50 70 156/71 09/13/16 23:06 36.6 103 18 159/78 96 Room Air 09/13/16 18:59 36.9 86 20 96 09/13/16 16:00 Room Air 09/13/16 15:48 36.9 86 20 153/75 96 Room Air Physical Exam Comments: penis w/o erythema and less tender urine culture grew out less than 10k and no sensitivities Laboratory Results Last 24 Hours Test 09/13/16 16:31 09/13/16 21:28 09/14/16 07:25 09/14/16 08:01 Bedside Glucose 143 mg/dl 263 mg/dl 201 mg/dl White Blood Count 10.74 K/uL Red Blood Count 3.37 M/uL Hemoglobin 10.1 g/dL Hematocrit 29.3 % Mean Corpuscular Volume 86.9 fL Mean Corpuscular Hemoglobin 30.0 pg Mean Corpuscular Hemoglobin Concent 34.5 g/dl Platelet Count 273 K/uL Mean Platelet Volume 8.8 fL Neutrophils (%) (Auto) 76.6 % Lymphocytes (%) (Auto) 12.1 % Monocytes (%) (Auto) 10.4 % Eosinophils (%) (Auto) 0.3 % Basophils (%) (Auto) 0.2 % Neutrophils # (Auto) 8.23 K/uL Lymphocytes # (Auto) 1.30 K/uL Monocytes # (Auto) 1.12 K/uL Eosinophils # (Auto) 0.03 K/uL Basophils # (Auto) 0.02 K/uL RDW Standard Deviation 45.4 fL RDW Coefficient of Variation 14.3 % Immature Granulocyte % (Auto) 0.4 % Immature Granulocyte # (Auto) 0.04 K/uL Prothrombin Time 14.0 SECONDS Prothromb Time International Ratio 1.3 Sodium Level 138 mmol/L Potassium Level 3.9 mmol/L Chloride Level 106 mmol/L Carbon Dioxide Level 25 mmol/L Anion Gap 7.0 mmol/L Blood Urea Nitrogen 17 mg/dl Creatinine 0.95 mg/dl Est Creatinine Clear Calc Drug Dose 69.7 ml/min Estimated GFR () 88.5 Estimated GFR (Non- 76.4 BUN/Creatinine Ratio 18.3 Random Glucose 197 mg/dl Calcium Level 8.6 mg/dl Test 09/14/16 11:49 Bedside Glucose 294 mg/dl Assessment and Plan will have to decide what he could be transitioned to orally but would cont current vancomycin given his improvement cont ortho workup Continued [facility] stay due to: voiding difficulties, ambulation difficulties, multiple IV medications needed Discharge planning: uncertain
[2016-09-14 16:00] VITALS: O2SAT 97
[2016-09-14 16:46] VITALS: BP 173/76; PULSE 73; TEMP 37.1; O2SAT 94
[2016-09-14] MEDS: WARFARIN SOD 5 MG TAB PO SCH (16:52)
--- NOTE | 2016-09-14 23:58 | Progress Note ---
Subjective Date of Service: Sep 14, 2016. Subjective Pt evaluation today including: conversation w/ patient, conversation w/ family (daughter at bedside), physical exam, chart review, lab review, review of studies (reviewed records from [facility]), conversation w/ sales consultant (urology, orthopedics), review of inpatient medication list Pain: none; left foot pain resolved PO Intake: improved, eating 100% meals Voiding: burt catheter in place no issues overnight feels MUCH better strength is good left foot is improved no cough or pulmonary symptoms willing to work with PT today Problem List Medical Problems: (1) Leukocytosis Status: Acute (2) Sepsis Status: Acute Review of Systems Constitutional: No chills, No fever Respiratory: No cough, No shortness of breath Cardiac: No chest pain Abdomen: + constipation (but did have BM about 2 days ago), No nausea, No pain , No vomiting Objective Vital Signs Date Time Temp Pulse Resp B/P Pulse Ox O2 Delivery O2 Flow Rate FiO2 09/14/16 16:46 37.1 73 18 173/76 94 Room Air 09/14/16 16:00 97 Room Air 09/14/16 08:15 36.4 68 18 155/74 97 Room Air 09/14/16 08:00 95 Room Air 09/14/16 00:00 Room Air 09/13/16 23:50 70 156/71 Physical Exam General Appearance: no apparent distress ENT: pharynx normal Neck: no JVD Respiratory/Chest: lungs clear, no respiratory distress, no accessory muscle use Cardiovascular: regular rate, rhythm, no gallop, no murmur Abdomen: normal bowel sounds, non tender, soft, no organomegaly Extremities: no pedal edema Neurologic/Psychiatric: alert, oriented x 3 Skin: + pertinent finding (penile shaft without erythema or swelling) Comments: musculoskeletal - left foot/ankle - NO tenderness with palpation of the ankle/ foot; no erythema or swelling today Laboratory Results Last 24 Hours Test 09/14/16 07:25 09/14/16 08:01 09/14/16 11:49 09/14/16 16:32 White Blood Count 10.74 K/uL Red Blood Count 3.37 M/uL Hemoglobin 10.1 g/dL Hematocrit 29.3 % Mean Corpuscular Volume 86.9 fL Mean Corpuscular Hemoglobin 30.0 pg Mean Corpuscular Hemoglobin Concent 34.5 g/dl Platelet Count 273 K/uL Mean Platelet Volume 8.8 fL Neutrophils (%) (Auto) 76.6 % Lymphocytes (%) (Auto) 12.1 % Monocytes (%) (Auto) 10.4 % Eosinophils (%) (Auto) 0.3 % Basophils (%) (Auto) 0.2 % Neutrophils # (Auto) 8.23 K/uL Lymphocytes # (Auto) 1.30 K/uL Monocytes # (Auto) 1.12 K/uL Eosinophils # (Auto) 0.03 K/uL Basophils # (Auto) 0.02 K/uL RDW Standard Deviation 45.4 fL RDW Coefficient of Variation 14.3 % Immature Granulocyte % (Auto) 0.4 % Immature Granulocyte # (Auto) 0.04 K/uL Prothrombin Time 14.0 SECONDS Prothromb Time International Ratio 1.3 Sodium Level 138 mmol/L Potassium Level 3.9 mmol/L Chloride Level 106 mmol/L Carbon Dioxide Level 25 mmol/L Anion Gap 7.0 mmol/L Blood Urea Nitrogen 17 mg/dl Creatinine 0.95 mg/dl Est Creatinine Clear Calc Drug Dose 69.7 ml/min Estimated GFR () 88.5 Estimated GFR (Non- 76.4 BUN/Creatinine Ratio 18.3 Random Glucose 197 mg/dl Calcium Level 8.6 mg/dl Bedside Glucose 201 mg/dl 294 mg/dl 191 mg/dl Test 09/14/16 20:17 Bedside Glucose 190 mg/dl Assessment and Plan 80yo male with: 1. sepsis, suspected source the urine; orthopedics feels that the left ankle is NOT infected. Blood cx's negative. Urine cx with insignificant # of GPC. Appreciate ID consult. Cont Vanco 1 more day. Records from [facility] reviewed - in July admitted for sepsis/ bacteremia 2nd to quintero-sensitive enterococcus due to enterococcal UTI. Would transition to po augmentin for 1-2 weeks starting tomorrow. 2. acute kidney injury - resolved. Suspect ATN from sepsis. No obstruction seen on CT but the recently passed urine stone could have contributed to LARA. 3. left flank pain - resolved. This was due to recently passed renal stone. 4. abnormal penis on imaging and exam - balanitis/cellulitis suspected - improved on antibiotics. 5. left ankle arthritis/pain - gout suspected. Improved w/ BID colchicine & prednisone. Taper prednisone to 10mg daily in AM. Cont colchicine. CT ankle ordered by Dr. Grey. Dr. Grey recommending special brace and f/u with him in his clinic. 6. a. fib s/p pacemaker placement - noted. EKG with pacing. On coumadin. INR in am. 7. protein calorie malnutrition, at least mild-moderate - noted. 8. hypomagnesemia - repeat mag level AM. 9. proteinuria and hematuria on u/a - will need repeat u/a soon. 10. hypothyroidism - cont synthroid. 11. DVT proph - SCDs and warfarin. 12. T2DM - control inadequate; add lantus. adjust novolog. daughter updated pt can return home tomorrow with burt in place IF PT/OT feel he is strong enough and safe to return home Continued [facility] stay due to: voiding difficulties, ambulation difficulties, multiple IV medications needed Discharge planning: home
[2016-09-15 00:12] VITALS: BP 157/72; PULSE 65; TEMP 36.9; O2SAT 96
[2016-09-15 06:07] LABS: INR 1.3 (0.9-1.1); PROTHROMBIN TIME (PATIENT) 13.5 SECONDS (9.0-12.0)
[2016-09-15] MEDS: LEVOTHYROXINE 25 MCG TAB PO SCH (06:21)
[2016-09-15 06:31] LABS: CREATININE 0.94 mg/dl (0.60-1.40); MAGNESIUM 1.8 mg/dl (1.8-2.4)
[2016-09-15] MEDS: POLYETHYLENE (MIRALAX) 17 GM PACK PO SCH (07:55)
[2016-09-15] MEDS: SENNA 8.6 MG TAB PO SCH (07:55)
[2016-09-15] MEDS: DICLOFENAC SOD 1% GEL 100 GM TUBE EXT SCH ×2 (07:57→11:02)
[2016-09-15] MEDS: KETOCONAZOLE 2% CR 15 GM TUBE EXT SCH (07:57)
[2016-09-15] MEDS: COLCHICINE 0.6 MG TAB PO SCH (07:58)
[2016-09-15] MEDS: MAGNESIUM OXIDE 400 MG TAB PO SCH (07:58)
[2016-09-15] MEDS: MULTIVITAMIN TAB PO SCH (07:58)
[2016-09-15] MEDS ORDERED: LISINOPRIL 20 MG TAB PO SCH (08:00)
[2016-09-15 08:01] VITALS: BP 168/75; PULSE 59; TEMP 36.5; O2SAT 95
[2016-09-15] MEDS: INSULIN ASPART 100 UNITS/ML 3 ML PEN SC SCH ×2 (08:36→12:30)
[2016-09-15] MEDS ORDERED: AMOXICILLIN/CLAVULANATE TAB 875 MG TAB PO SCH (10:00)
[2016-09-15 10:30] VITALS: BP 168/75; PULSE 59; TEMP 36.5; O2SAT 95
[2016-09-15] MEDS ORDERED: LACTCHW3 PO (10:53)
[2016-09-15] MEDS ORDERED: WARF5TAB7 PO (10:53)
[2016-09-15] MEDS ORDERED: PRD10 PO (10:53)
[2016-09-15] MEDS ORDERED: AMOX1TAB43 PO (10:53)
[2016-09-15] MEDS ORDERED: CLC6 PO (10:53)
[2016-09-15] MEDS ORDERED: VLTG EXT (10:53)
[2016-09-15] MEDS ORDERED: MRLP17 PO (10:53)
--- NOTE | 2016-09-15 11:03 | Discharge Instructions ---
Discharge Instructions Date of Service Sep 15, 2016. Admission Reason for Admission: Vomiting, Dehydration, Acute Kidney Failure/Injury Discharge Discharge Diagnosis / Problem: Acute kidney injury - resolved. Recently passed kidney stone - resolved. Discharge Goals Goal(s): Learn about illness, Diagnostic testing, Therapeutic intervention Activity Recommendations Activity Limitations: resume your previous activity (as tolerated) . Instructions / Follow-Up Instructions / Follow-Up From Dr. Torres - 1. Infection of penis / possible urinary tract infection - * take augmentin 875mg twice daily for 14 days * begin this TONIGHT on 09/15/16 * take probiotics (lactinex) for 14 days as well; take this twice daily to prevent diarrhea from the augmentin 2. kidney stone, enlarged prostate, burt catheter - * please continue to stay in touch with Dr. Ambrocio regarding your surgery date * the burt catheter will remain in place until your surgery 3. suspected gout of the left foot & ankle - * take 2 more days of prednisone starting tomorrow * take 7 days of colchicine; take 1 pill once daily; start this tomorrow * in the future, if you get another gout flare, you can take the colchicine as needed 4. left foot deformity - please follow-up with Dr. Grey, the ankle specialist (see section with his address/phone number) 5. coumadin - * resume taking this at discharge; take your first dose TODAY 09/15/16 * please have Dr. Barger's office check your INR no later than 09/18/16 * you will need to stay in touch with Dr. Ambrocio's office as to when the coumadin should be stopped for your upcoming surgery 6. thumb arthritis - * may take voltaren gel 2 grams up to 4 times a day for pain 7. constipation - * take miralax 1 serving once a day; may increase to twice a day if desired and/ or needed 8. diabetes - * resume both your metformin and glyburide today 9. follow-up appointments - * see Dr. Barger or one of his associates this 09/18/16 * see Dr. Grey in about 1 month * call Dr. Ambrocio's office to confirm your surgery date and obtain additional pre-op instructions Current Hospital Diet Patient's current hospital diet: AHA Diet (Heart Healthy), Diabetes Type 2 Diet Discharge Diet Recommended Diet: Diabetes Type 2 Diet Procedures Procedures Performed: CAT scan of the abdomen/pelvis - recently passed kidney stone on left. Kidney stone on right in the ureter. Pending Studies Studies pending at discharge: no Medical Emergencies . Who to Call and When: Medical Emergencies: If at any time you feel your situation is an emergency, please call 911 immediately. . Non-Emergent Contact Non-Emergency issues call your: Primary Care Provider Call Non-Emergent contact if: temperature is above 100.5, your pain is not controlled, your pain is worsening, your pain is unusual for you, your pain is concerning you, you have any medication questions . . "Provider Documentation" section prepared by Thom Torres. VTE Core Measure Inpt VTE Proph given/why not?: Warfarin (Coumadin), SCD's
--- NOTE | 2016-09-15 12:29 | Progress Note ---
Subjective Date of Service: Sep 15, 2016. Subjective Pt evaluation today including: conversation w/ patient, physical exam, chart review, lab review, conversation w/ life skills consultant Pain: pain gone Voiding: burt catheter in place pt feeling better Problem List Medical Problems: (1) Leukocytosis Status: Acute (2) Sepsis Status: Acute Objective Vital Signs Date Time Temp Pulse Resp B/P Pulse Ox O2 Delivery O2 Flow Rate FiO2 09/15/16 10:30 36.5 59 20 95 Room Air 09/15/16 08:01 36.5 59 20 168/75 95 Room Air 09/15/16 08:00 Room Air 09/15/16 00:12 36.9 65 18 157/72 96 Room Air 09/15/16 00:00 Room Air 09/14/16 16:46 37.1 73 18 173/76 94 Room Air 09/14/16 16:00 97 Room Air Physical Exam Comments: penis appears nl w/o erythema or induration as does scrotum Laboratory Results Last 24 Hours Test 09/14/16 16:32 09/14/16 20:17 09/15/16 05:30 09/15/16 07:16 Bedside Glucose 191 mg/dl 190 mg/dl 160 mg/dl Prothrombin Time 13.5 SECONDS Prothromb Time International Ratio 1.3 Creatinine 0.94 mg/dl Est Creatinine Clear Calc Drug Dose 70.4 ml/min Estimated GFR () 89.6 Estimated GFR (Non- 77.3 Magnesium Level 1.8 mg/dl Test 09/15/16 11:45 Bedside Glucose 264 mg/dl Assessment and Plan Discussed with hospitalist who will transition pt to augmentin based on outpt cultures pt to take antibiotic up until surgery in 10 days . I reiterated how important it is for him to contact us if he starts to have fever or recurrent pain and swelling in his penis Continued [facility] stay due to: voiding difficulties, ambulation difficulties, multiple IV medications needed Discharge planning: home
[2016-09-16] MEDS ORDERED: VANCOMYCIN TROUGH SCH (05:30)
--- NOTE | 2016-09-16 23:52 | Discharge Summary ---
Discharge Summary Date of Service Sep 16, 2016. Discharge Summary Admission Date: Sep 11, 2016 at 19:46 Discharge Date: Sep 15, 2016 Discharge Disposition: Home with services Principal Diagnosis: sepsis, urinary source suspected Problems/Secondary Diagnoses: 1. recently passed kidney stone on left 2. distal right-sided ureteral kidney stone 3. T2DM 4. HTN 5. acute renal failure - resolved 6. dementia 7. hypothyroidism 8. left foot gout (suspected) 9. osteoarthritis of multiple joints 10. h/o ankle fusion, left 11. atrial fibrillation on chronic coumadin 12. pacemaker status 13. BPH with urinary retention requiring burt catheter 14. protein calorie malnutrition - mild/moderate 15. balanitis/cellulitis of penile shaft 16. hypomagnesemia - resolved 17. proteinuria & hematuria on u/a - needs follow-up Procedures: 1. CT abd/pelvis: IMPRESSION: 1. There is a 3 mm calculus identified within the bladder lumen and mild fullness of the left renal collecting system. No hydronephrosis is seen. No left renal calculi are identified, and the 3 mm nonobstructing left lower pole calculus seen on 08/09/2016 is no longer present. These findings are consistent with a recently passed left-sided kidney stone. 2. A 5 mm calculus in the distal right ureter is unchanged from 08/09/2016. There is no upstream hydroureteronephrosis. Urologic follow-up is recommended. 3. Additional nonobstructing right renal calculi as above. 4. There is marked soft tissue edema identified involving the penile shaft and scrotum. There are foci of subcutaneous gas within the penis, as well as small foci of gas within the penile corpora. This is of indeterminate etiology and significance, and could be on a posttraumatic or possibly an infectious basis. Urologic assessment is recommended. 5. The bladder is partially decompressed around a Burt catheter. Foci of intraluminal gas are likely related to instrumentation. Clinical correlation will be required. 6. Small pleural effusions. 7. Moderate colonic diverticulosis without CT evidence of acute diverticulitis. 2. CT left foot - IMPRESSION: 1. No CT evidence of acute osteomyelitis 2. Postsurgical changes of a hindfoot triple arthrodesis 3. Edema within the plantar soft tissues and possible edema involving the intrinsic muscles of the foot. Consultations: 1. urology - Van Yañez MD 2. infectious disease - ERIKA Bailey 3. orthopedics - Joseluis Grey DO 4. PT, OT Medication Reconciliation New Medications: Lactobacillus (Lactinex) Chw 2 TAB PO BID for 14 Days, #60 CHW 0 Refills Amoxicillin & Pot Clavulanate (Amoxicillin/Clavulanate P) 1 Tab Tab 875 MG PO BIDM for 14 Days, #28 TAB 0 Refills Colchicine (Colcrys) 0.6 Mg Tab 0.6 MG PO DIRECTED, #30 TAB 0 Refills Diclofenac Sod (Voltaren) 100 Appln/100 Gm Gel 1 APPLN EXT QID, #1 TUBE 2 Refills may apply 2 grams to either thumb up to 4 times a day Polyethylene (Miralax) 17 Gm Pow 17 GM PO DAILY, #1 BTL 1 Refill Prednisone (Prednisone) 10 Mg Tab 10 MG PO QAM for 2 Days, #2 TAB 0 Refills begin 09/16/16 Changed Medications: Warfarin Sod (Jantoven) 5 Mg Tab 5 MG PO DAILY, #30 TAB 0 Refills (Changed from: HOLD; Refills: ; Removed Instructions) Continued Medications: Donepezil Hydrochloride (Aricept) 10 Mg Tab 10 MG PO HS, TAB Glyburide (Micronase) 5 Mg Tab 2.5 MG PO QAM, TAB Levothyroxine Sodium (Levothyroxine Sodium) 25 Mcg Tab 25 MCG PO QAM, TAB Lisinopril (Prinivil) 40 Mg Tab 40 MG PO QPM, TAB Metformin HCl (Metformin HCl) 500 Mg Tab 1000 MG PO BID Multivitamin (Multivitamin) Tab 1 TAB PO DAILY, TAB Tramadol (Ultram) 50 Mg Tab 50-100 MG PO Q6H PRN for Pain, TAB Discontinued Medications: Ciprofloxacin Tab (Cipro) 250 Mg Tab 500 MG PO BID, TAB LAST DOSE 09/12/2016 Referrals At Discharge Follow up Referrals: Orthopedics Referral - Please Call For Appointment with Jossue Grey D.O. Physician Referral - Please Call For Appointment with Christoph Barger M.D. Urologist Referral - Please Call For Appointment with Mehul Ambrocio M.D. Discharge Exam Physical Exam: General Appearance: no apparent distress ENT: pharynx normal Neck: no JVD Respiratory/Chest: lungs clear, no respiratory distress, no accessory muscle use Cardiovascular: regular rate, rhythm, no gallop, no murmur, normal peripheral pulses Abdomen / GI: normal bowel sounds, non tender, soft, no organomegaly Extremities: no pedal edema, + pertinent finding (left foot/ankle - evidence of prior fusion procedure; minimal swelling of the foot ) Neurologic/Psychiatric: alert Hospital Course HISTORY OF PRESENT ILLNESS: The patient is a 80-year-old male who presented to the [facility] emergency department with severe left foot pain, redness and swelling, and sweats with nausea and vomiting that began 2 days prior to arrival. He was recently admitted at [facility] for urosepsis 1 month ago. He has been burt-catheter dependent since that hospital admission. He reported he vomited 3 times on the AM of admission. His foot was so painful he could not stand on it. He denied any recent trauma, recent travel or sick exposures At time of ER presentation he had a wbc count of over 20,000 and low blood pressure. His blood pressure responded to multiple saline boluses. HOSPITAL COURSE: 1. sepsis, suspected source was the urine - After admission the patient underwent CT of the abd/pelvis demonstrating findings that were consistent with a recently passed kidney stone on the left- side. Thus, his vomiting and other GI symptoms were likely due to the passed kidney stone. He was begun on IV antibiotic therapy. Blood cultures remained negative while hospitalized. Urine culture grew an insignificant number of gram positive cocci (9000 CFU only ). His exam showed evidence of penile balanitis/cellulitis. Records from [facility] were reviewed - in July 2016 he was admitted for sepsis/bacteremia 2nd to quintero-sensitive enterococcus due to UTI. He was seen in consult by urology and infectious disease. Both recommended at least 2 weeks of oral antibiotics (augmentin) to cover the penis and urinary tract. Orthopedics felt that there was NO evidence of septic arthritis of the left foot. 2. acute kidney injury / acute renal failure - peak creatinine was 3.5, improving to 0.9 at discharge. Suspect ATN from sepsis. No obstruction was seen on CT but the recently passed urine stone could have contributed to his LARA. 3. abnormal penis on imaging and exam - balanitis/cellulitis was suspected by urology. This improved on antibiotics. 4. left ankle arthritis/pain - gout was suspected. Symptoms improved with colchicine & prednisone. He was seen in consult by Dr. Joseluis Grey, orthopedics. CT foot was completed, and there was no evidence of osteomyelitis, significant joint effusion, abscess, or fractures. He will follow-up with Dr. Grey in the future for management of his chronically fused left ankle. Bracing may be recommended. CT ankle ordered by Dr. Grey. Dr. Grey recommending special brace and f/u with him in his clinic. 5. a. fib s/p pacemaker placement - the patient takes chronic coumadin. Discharge INR was 1.3. He was asked to follow-up with Dr. Barger in 3 days after discharge for an INR check. 6. BPH with urinary retention with use of burt catheter - the patient will continue burt catheter at time of discharge. He is to undergo TURP and right-sided kidney stone removal by Dr. Ambrocio in the next 2 weeks following discharge. The patient voiced understanding that his coumadin will need to be stopped prior to these procedures. 7. proteinuria & hematuria - the patient had 3+ protein and 3+ blood on u/a during this stay. Repeat u/a after his urological procedures are completed is recommended to ensure resolution. The patient was seen by PT/OT while hospitalized and it was felt that he was appropriate for discharge home with home health. All other medical problems remained stable while here. Total Time Spent: Greater than 30 minutes This includes examination of the patient, discharge planning, medication reconciliation, and communication with other providers. Discharge Instructions Please refer to the electronic Patient Visit Report (Discharge Instructions) for additional information. Follow-Up 1. see Dr. Barger, PCP, within 3 days for INR check and hospital follow-up 2. see Dr. Cristian Ambrocio, [facility], within 10-14 days for scheduled TURP and right-sided kidney stone removal 3. see Dr. Grey, orthopedics, within 1 month for left foot/ankle Additional Copies To Jossue Grey D.O.; Christoph Barger M.D.; Mehul Ambrocio M.D.
[2016-09-24] MEDS ORDERED: PHEN-876 PO (09:31)
== END 2016-09-15 15:23 | disposition home health service (06) | DRG 871 ==
LOC: ENRESERVTM → ENRESERVDT → C.EDB 15:09 → C.2E 19:46 → C.MS4W 09-13 11:36
PROVIDERS: ADMIT Hospitalist; ATTEND Internal Medicine
DX: A41.9 Sepsis, unspecified organism (principal); N17.0 Acute kidney failure with tubular necrosis; N20.1 Calculus of ureter; N17.9 Acute kidney failure, unspecified; E44.0 Moderate protein-calorie malnutrition; E83.42 Hypomagnesemia; I48.91 Unspecified atrial fibrillation; M10.9 Gout, unspecified; N48.1 Balanitis; N48.22 Cellulitis of corpus cavernosum and penis; R33.9 Retention of urine, unspecified; K59.00 Constipation, unspecified; I10 Essential (primary) hypertension; I95.89 Other hypotension; N47.1 Phimosis; E11.9 Type 2 diabetes mellitus without complications; F03.90 Unspecified dementia, unspecified severity, without behavioral disturbance, psychotic disturbance, mood disturbance, and anxiety; E03.9 Hypothyroidism, unspecified; E78.5 Hyperlipidemia, unspecified; Z95.1 Presence of aortocoronary bypass graft; Z95.0 Presence of cardiac pacemaker; Z79.01 Long term (current) use of anticoagulants; Z79.899 Other long term (current) drug therapy

== ENCOUNTER 2016-09-24 06:36 | Day surgery (SDC) | payer OTHER ==
[2016-09-11 13:16] VITALS: BMI 28.0
--- NOTE | 2016-09-11 14:09 | PAT Medication Instructions ---
Service Date Sep 11, 2016. Current Home Medication List Ciprofloxacin Tab (Cipro), 500 MG PO BID Donepezil Hydrochloride (Aricept), 10 MG PO HS Glyburide (Micronase), 2.5 MG PO QAM Levothyroxine Sodium (Levothyroxine Sodium), 1 TAB PO QAM Lisinopril (Prinivil), 40 MG PO QPM Metformin HCl (Metformin HCl), 2 TAB PO BID Tramadol (Ultram), 1-2 TAB PO Q6 PRN for Pain Warfarin Sod (Jantoven), 5 MG PO QPM Medication Instructions For Your Scheduled Surgery - Instructions per prescribing physician: Warfarin Sod (Jantoven), 5 MG PO QPM D/C by primary physician secondary to bleeding; Last dose 08/09/16 - Hold the following medications 48 hours prior to surgery: Metformin HCl (Metformin HCl), 2 TAB PO BID - Hold the following medications the morning of surgery: Glyburide (Micronase), 2.5 MG PO QAM - Take the following medications the morning of surgery with a sip of water OTHERWISE NOTHING TO EAT OR DRINK AFTER MIDNIGHT: Tramadol (Ultram), 1-2 TAB PO Q6 PRN for Pain (may take up to 4 hours prior to surgery) Levothyroxine Sodium (Levothyroxine Sodium), 1 TAB PO QAM - Take the following medications as scheduled the night before surgery: Donepezil Hydrochloride (Aricept), 10 MG PO HS Tramadol (Ultram), 1-2 TAB PO Q6 PRN for Pain - Do not take the following medications the night before surgery: Lisinopril (Prinivil), 40 MG PO QPM If you have any questions please call us at [phone] or [phone] or [phone]
--- NOTE | 2016-09-11 15:09 | DIAGNOSTIC IMAGING REPORT ---
CHEST 2 VIEWS ROUTINE CLINICAL HISTORY: Preoperative chest COMPARISON STUDY: No previous studies for comparison. FINDINGS: There is a left subclavian dual-chamber central venous pacemaker present. There is no failure. There is no focal pulmonary consolidation. There are no pleural effusions. Subtle rounded opacities in each lung base are felt to represent nipple shadows.[ IMPRESSION: No active disease in the chest. Electronically signed by: Alirio King M.D. 09/11/2016 3:07 PM Dictated Date/Time: 09/11/2016 3:03 PM
[2016-09-11 15:32] LABS: BASO % 0.2 %; BASO ABS # 0.03 K/uL (0-0.2); COMPLETE YES; EOS % 0.2 %; HEMATOCRIT 34.9 % (42-52); IG% 0.5 %; LYMPH % 10.8 %; MEAN CELL VOLUME 88.8 fL (80-100); MEAN CORPUSCULAR HEMOGLOBIN 29.8 pg (25-34); MEAN CORPUSCULAR HGB CONC 33.5 g/dl (32-36); MEAN PLATELET VOLUME 9.6 fL (7.4-10.4); MONO % 11.5 %; NEUT % 76.8 %; PLATELET COUNT 315 K/uL (130-400); RED BLOOD COUNT 3.93 M/uL (4.7-6.1); WHITE BLOOD COUNT 19.42 K/uL (4.8-10.8)
[2016-09-11 15:45] LABS: BUN/CREATININE RATIO 10.8 (10-20); CREATININE 3.3 mg/dl (0.60-1.40); POTASSIUM 4.6 mmol/L (3.5-5.1)
[~2016-09-24] VITALS: Ht 172.7 cm; Wt 85.3 kg
[~2016-09-24 06:36] MED LIST changes: +AMOX1TAB43 PO; +CEFTRIAXONE SOD INJ 1000 MG in DEXTROSE 5% 50ML IV SCH; -CIPR1TAB11 PO; +CLC6 PO; +LACTCHW3 PO; +MRLP17 PO; +MULT-506 PO; +PRD10 PO; +VLTG EXT
[2016-09-24 07:11] VITALS: BP 156/75; PULSE 85; TEMP 36.8; O2SAT 96; Ht 172.7 cm; Wt 85.3 kg
[2016-09-24 07:21] LABS: INR 1.1 (0.9-1.1); PROTHROMBIN TIME (PATIENT) 11.5 SECONDS (9.0-12.0)
[2016-09-24] MEDS ORDERED: LIDOCAINE HCL 2% 2 ML VIAL (20MG/ML) ONE (07:25)
[2016-09-24] MEDS ORDERED: ONDANSETRON INJ 2 MG/ML 2 ML VIAL ONE (07:25)
[2016-09-24] MEDS ORDERED: FENTANYL CITRATE INJ 50 MCG/1 ML 2 ML VIAL ONE ×2 (07:25→08:54)
[2016-09-24] MEDS ORDERED: PROPOFOL IV EMULSION 10 MG/ML 20 ML VIAL IV ONE (07:25)
[2016-09-24] MEDS ORDERED: FENTANYL CITRATE INJ 50 MCG/1 ML 2 ML VIAL IV PRN (07:45)
[2016-09-24] MEDS ORDERED: ONDANSETRON INJ 2 MG/ML 2 ML VIAL IV PRN (07:45)
[2016-09-24] MEDS ORDERED: ATROPINE SULFATE 0.1 MG/ML 5ML SYR IV PRN (07:45)
[2016-09-24] MEDS ORDERED: LABETALOL HCL IV 5 MG/ML 20ML IV PRN (07:45)
--- NOTE | 2016-09-24 08:07 | History & Physical Bridge Note ---
H&P Re-Evaluation Bridge Note: I have examined the patient, reviewed the History & Physical and in the interval since the performance of the History & Physical I have noted the following changes of clinical significance: No changes noted
--- NOTE | 2016-09-24 08:12 | History & Physical Bridge Note ---
H&P Re-Evaluation Bridge Note: I have examined the patient, reviewed the History & Physical and in the interval since the performance of the History & Physical I have noted the following changes of clinical significance: No changes noted Plan for treatment of stones, but also possible TURP secondary to urinary retention
[2016-09-24] MEDS ORDERED: CONRAY 30% 150ML BOTTLE ONE (08:53)
[2016-09-24] MEDS ORDERED: MoRPHine SULFATE 2 MG/ML CARP ONE (09:03)
[2016-09-24] MEDS ORDERED: ESMOLOL HCL 10 MG/ML 10 ML VIAL ONE (09:19)
--- NOTE | 2016-09-24 09:30 | [facility] Post Operative Brief Note ---
Immediate Operative Summary Operative Date Sep 24, 2016. Pre-Operative Diagnosis Benign Prostatic hyperplasia with Urinary Obstruction, Urinary Retention and Nephrolithiasis Post-Operative Diagnosis Benign Prostatic hyperplasia with Urinary Obstruction, Urinary Retention and Nephrolithiasis Procedure(s) Performed Right retro grade pyelogram, lithalopaxy, cystoscopy and Transurethral Resection Prostate Surgeon Dr Ambrocio Manager Support Services Surgeon(s) none Estimated Blood Loss 10 ml Findings No filling defects or visible stones within the right ureter. Large calculus and a smaller calculus within the bladder. High bladder neck and moderately obstructing lateral lobes of the prostate. Specimens A: Stones for anaylsis Drains 20F burt Anesthesia Gen Complication(s) None Disposition Recovery Room / PACU (stable)
[2016-09-24] MEDS ORDERED: PHEN-876 PO (09:31)
[2016-09-24] MEDS ORDERED: SODIUM CHLORIDE 0.9% 1000ML 1,000 ML IV SCH (09:34)
--- NOTE | 2016-09-24 09:35 | Discharge Instructions ---
Discharge Instructions Date of Service Sep 24, 2016. Admission Reason for Admission: Stones; urinary retention Discharge Discharge Diagnosis / Problem: Stones; BPH Discharge Goals Goal(s): Decrease discomfort, Improve function, Increase independence, Improve disease control, Prevent Disease Progression Activity Recommendations Activity Limitations: resume your previous activity Lifting Limitations: none Exercise/Sports Limitations: none May Resume Sexual Activity: when tolerated Shower/Bathe: no limitations Driving or Machine Use: resume 1 day after discharge (as long as you are off of pain medications) . Instructions / Follow-Up Instructions / Follow-Up Please come to Dr. Ambrocio's office in [place] on at 9:30 AM to have your catheter removed. Please hold your coumadin until , and we will plan to resume it after your catheter is removed. Discharge Diet Recommended Diet: Regular Diet Procedures Procedures Performed: Right retro grade pyelogram, lithalopaxy, cystoscopy and Transurethral Resection Prostate Pending Studies Studies pending at discharge: no Medical Emergencies . Who to Call and When: Medical Emergencies: If at any time you feel your situation is an emergency, please call 911 immediately. . Non-Emergent Contact Non-Emergency issues call your: Urologist Call Non-Emergent contact if: you have a fever, temperature is above 101.5, your pain is not controlled, your pain is worsening . . "Provider Documentation" section prepared by Kuldeep Gonzalez. VTE Core Measure Inpt VTE Proph given/why not?: Warfarin (Coumadin) (Please start after your catheter has been removed)
[2016-09-24] MEDS ORDERED: OXYCODONE/ACETAMINOPHEN 5-325 TAB PO PRN ×2 (09:45)
--- NOTE | 2016-09-24 10:09 | Anesthesiology Progress Note ---
Anesthesia Post Op Note Date & Time Sep 24, 2016 at 10:08 Vital Signs Pain Intensity: 5 Vital Signs Past 12 Hours Date Time Temp Pulse Resp B/P Pulse Ox O2 Delivery O2 Flow Rate FiO2 09/24/16 10:00 106 24 164/89 97 Room Air 09/24/16 09:50 100 14 130/70 100 Mask 10 09/24/16 09:40 96 14 131/70 99 Mask 10 09/24/16 09:34 36.8 98 12 139/67 98 Mask 10 09/24/16 07:11 36.8 85 20 156/75 96 Room Air Notes Mental Status: alert / awake / arousable, participated in evaluation Pt Amnestic to Procedure: Yes Nausea / Vomiting: adequately controlled Pain: adequately controlled Airway Patency, RR, SpO2: stable & adequate BP & HR: stable & adequate Hydration State: stable & adequate Anesthetic Complications: no major complications apparent
[2016-09-24 10:30] VITALS: BP 160/80; PULSE 88; TEMP 36.8; O2SAT 94
--- NOTE | 2016-09-24 10:46 | OPERATIVE REPORT ---
DATE OF OPERATION: 09/24/2016 PREOPERATIVE DIAGNOSIS: Nephrolithiasis, benign prostatic hypertrophy, urinary retention. POSTOPERATIVE DIAGNOSIS: Nephrolithiasis, bladder calculus, benign prostatic hypertrophy and urinary retention. PROCEDURE PERFORMED: Cystoscopy, right retrograde pyelogram, cystolitholapaxy, TURP. SURGEON: Dr. Ambrocio. ANESTHESIA: General. ESTIMATED BLOOD LOSS: 10 mL. URINE OUTPUT: Not recorded. COMPLICATIONS: There were no complications. SPECIMENS: Stone for chemical analysis. OPERATION AND FINDINGS: DESCRIPTION OF THE PROCEDURE: Roosevelt Paul was identified in the preoperative holding area. Appropriate informed consents reviewed and completed and the patient was transported to the operating suite. Upon arrival, he received appropriate preoperative antibiotics in the form of ceftriaxone. Adequate general anesthesia was achieved and he was placed in dorsal lithotomy position where he was sterilely prepped and draped in standard fashion. Of note, he arrived with Agarwal catheter in place and this was removed prior to prep. The patient's foreskin was relatively difficult to retract, was able to however guide a scope through the distal aspect of this and into the urethra. He has a somewhat nontraumatized distal urethra without evidence of stricture. Proximal urethra and bulbar urethra were notably clear of any disease. His prostate was moderately enlarged with lateral lobe hypertrophy as well as a high bladder neck. Inspection of the bladder revealed no evidence of any active bleeding or tumors. He did have a large calculus seen in the dependent portion of the bladder as well as a secondary smaller calculus adjacent to it. Ureteral orifices were in orthotopic position. After my full inspection, I turned my attention to the right ureteral orifice. I cannulated it with a sensor wire and a 10-Iraqi double lumen catheter just into the distal ureter. I then performed a retrograde pyelogram. There was mild dilation but no filling defects appreciated throughout the course of this ureter. There was prompt drainage of the contrast out after I removed the catheter. With this in mind not seeing a definitive distal ureteral stone, I elected to presume that the smaller stone in the bladder was likely passed from the right orifice and another stone appeared more likely to be a true bladder calculus. The smaller stone was able to be irrigated out through the scope. The large stone was too large to be irrigated through my standard cystoscope. I then exchanged the cystoscope for a 27-Iraqi resectoscope. I still was unable to irrigate the stone out of the bladder. Instead, I passed a biopsy forceps and I gradually chipped away the outside to this by crushing the stone and then I was able to finally evacuate all the stone debris out of the bladder through my resectoscope. At that time, I passed a button electrode and I performed a transurethral vaporization of the prostate using this button electrode. I began at the bladder neck creating incisions at 5 and 7 o'clock dropping this down with care to avoid encroachment upon the ureteral orifices. I then resected the intervening segment between the 2 in the midline followed by the left lateral lobe and the right lateral lobe and ultimately concluded with the apical tissue. His prostate appeared to be widely patent at the conclusion of the case. I left his bladder full after confirming excellent hemostasis and I withdrew the cystoscope. I then replaced a 20-Iraqi standard catheter without difficulty. Case was subsequently concluded and the patient was extubated and taken to the PACU in stable condition. There were no complications. I attest to the content of the Intraoperative Record and any orders documented therein. Any exceptio ns are noted below.
[2016-09-24 11:00] VITALS: BP 140/69; PULSE 89; O2SAT 97
[2016-09-24 11:45] VITALS: BP 160/69; PULSE 88; O2SAT 96
== END 2016-09-24 12:20 | disposition home or self-care (01) ==
LOC: C.ACU 06:36
PROVIDERS: ATTEND Urology
DX: N20.0 Calculus of kidney (principal); N21.0 Calculus in bladder; N13.8 Other obstructive and reflux uropathy; N40.1 Benign prostatic hyperplasia with lower urinary tract symptoms; R33.9 Retention of urine, unspecified; E11.9 Type 2 diabetes mellitus without complications; I10 Essential (primary) hypertension; Z95.0 Presence of cardiac pacemaker; Z98.890 Other specified postprocedural states; Z80.42 Family history of malignant neoplasm of prostate; Z82.61 Family history of arthritis; Z83.3 Family history of diabetes mellitus; Z68.28 Body mass index [BMI] 28.0-28.9, adult